=== PATIENT | male | born 1950 | race Caucasian/White ===

== ENCOUNTER 2016-12-11 07:20 | Emergency (ER) | payer MEDICARE, BC ==
[2016-12-11 07:38] VITALS: BP 149/77
--- NOTE | 2016-12-11 08:09 | EDM.PDOC ---
ED HPI GENERAL MEDICAL PROBLEM - General Chief Complaint: General Stated Complaint: unsteady gait, dizzy Time Seen by Provider: 12/11/16 07:50 Source of Information: Reports: Patient History Limitations: Reports: No limitations - History of Present Illness Onset: gradual Duration: Day(s):, Getting worse, Recurring Quality: Reports: Sharp Severity: moderate Worsens with: Reports: None, Other (Patient stated this has been going on for several days now. 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 He has not felt "right" since.) Associated Symptoms: Reports: other Abdomen Pain Score (Numeric/FACES): 2 (Not hurting now, but very painfull last night) - Related Data Allergies Allergy/AdvReac Type Severity Reaction Status Date / Time No Known Allergies Allergy Verified 12/11/16 07:39 Home Meds: Home Meds Albuterol [Proair HFA] 2 puff INH Q6HR PRN 11/02/13 [History] Aspirin [Halfprin] 81 mg PO DAILY 11/02/13 [History] Zolpidem [Ambien] 10 mg PO BEDTIME PRN #7 tab 11/03/13 [Rx] Ibuprofen 200 mg PO ASDIRECTED PRN 07/13/15 [History] amLODIPine Besylate [Amlodipine Besylate] 10 mg PO DAILY 06/02/16 [History] LORazepam [LORazepam] 1 mg PO BEDTIME PRN 07/27/16 [History] Pravastatin [Pravachol] 40 mg PO DAILY 12/11/16 [History] Sertraline [Zoloft] 50 mg PO DAILY 12/11/16 [History] Umeclidinium Brm/Vilanterol Tr [Anoro Ellipta 62.5-25 Mcg INH] 1 puff INH DAILY 12/11/16 [History] Past Medical History HEENT History: Reports: Cataract Cardiovascular History: Reports: High cholesterol, Hypertension, PVD, Other ( see below) Other Cardiovascular History: TIA's Respiratory History: Reports: COPD, Other (see below) Other Respiratory History: emphysema Genitourinary History: Reports: Other (see below) Other Genitourinary History: urinary frequency Musculoskeletal History: Reports: Fracture Neurological History: Reports: CVA Other Psychiatric History: says he has some depression Other Endocrine/Metabolic History: hyperlipidemia - Past Surgical History HEENT Surgical History: Reports: Cataract surgery Cardiovascular Surgical History: Reports: Vascular surgery GI Surgical History: Reports: Appendectomy Neurological Surgical History: Reports: None Musculoskeletal Surgical History: Reports: Carpal tunnel Social & Family History - Tobacco Use Smoking Status *Q: Former Smoker Years of Tobacco use: 40 Packs/Tins Daily: 0.5 Used Tobacco, but Quit: Yes Month Tobacco Last Used: June 2015 - Caffeine Use Caffeine Use: Reports: Soda - Alcohol Use Days Per Week of Alcohol Use: 7 Number of Drinks Per Day: 3 Total Drinks Per Week: 21 - Recreational Drug Use Recreational Drug Use: No ED ROS GENERAL - Review of Systems Review Of Systems: See Below Constitutional: Reports: fatigue, weight gain HEENT: Reports: No symptoms Respiratory: Reports: Shortness of Breath, Other (History of COPD) Cardiovascular: Reports: No symptoms Endocrine: Reports: fatigue GI/Abdominal: Reports: Abdominal pain, Constipation : Reports: no symptoms Musculoskeletal: Reports: no symptoms Skin: Reports: pallor Neurological: Reports: Dizziness, Difficulty Walking Psychiatric: Reports: Anxiety Hematologic/Lymphatic: Reports: no symptoms Immunologic: Reports: no symptoms ED EXAM, GENERAL - Physical Exam Exam: See Below Exam Limited By: No limitations General Appearance: alert, anxious Ears: normal external exam, normal canal Nose: normal inspection Throat/Mouth: Normal inspection Head: atraumatic, normocephalic Neck: normal inspection, non-tender Respiratory/Chest: no respiratory distress, lungs clear Cardiovascular: normal peripheral pulses, regular rate, rhythm, no edema GI/Abdominal: normal bowel sounds, soft, tender Extremities: normal inspection Neurological: alert, oriented, normal cognition, abnormal gait Psychiatric: anxious Skin Exam: Pallor EKG INTERPRETATION EKG Date: 12/11/16 EKG Interpretation Comments: normal sinus rythm Course - Vital Signs Last Recorded V/S: Last Vital Signs Temp 36.8 C 12/11/16 07:36 Pulse 82 12/11/16 07:36 Resp 16 12/11/16 07:36 BP 149/77 H 12/11/16 07:36 Pulse Ox 98 12/11/16 07:36 - Orders/Labs/Meds Orders: Active Orders 24 hr Category Date Time Status EKG Documentation Completion [RC] STAT Care 12/11/16 07:45 Active UA W/MICROSCOPIC [URIN] Stat Lab 12/11/16 08:00 Uncollected EKG 12 Lead [EK] Stat Ther 12/11/16 08:02 Stop Req Labs: Laboratory Tests 12/11/16 12/11/16 12/11/16 Range/Units 08:00 08:00 08:00 WBC 9.3 (5.0-10.0) 10^3/uL RBC 4.49 L (4.50-6.00) 10^6/uL Hgb 13.7 L (14.0-18.0) g/dL Hct 40.7 (40.0-54.0) % MCV 90.6 (82.0-94.0) fL MCH 30.5 (27.0-32.0) pg MCHC 33.7 (33.0-38.0) g/dL RDW Coeff of Roland 14.1 (11.0-15.0) % Plt Count 276 (150-400) 10^3/uL Neut % (Auto) 74.4 (35-85) % Lymph % (Auto) 13.1 (10-55) % [place] % (Auto) 10.1 (0-16) % Eos % (Auto) 2.2 (0-5) % Baso % (Auto) 0.2 (0-3) % Neut # 6.95 (1.80-7.00) 10^3/uL Lymph # 1.22 (1.00-4.80) 10^3/uL [place] # 0.94 H (0.00-0.80) 10^3/uL Eos # 0.21 (0.00-0.45) 10^3/uL Baso # 0.02 10^3/uL D-Dimer, Quantitative 0.40 (0.00-0.50) Sodium 137 (136-145) mEq/L Potassium 3.6 (3.5-5.0) mEq/L Chloride 101 (98-106) mEq/L Carbon Dioxide 29 (21-32) mmol/L BUN 13 (7-18) mg/dL Creatinine 1.2 (0.7-1.3) mg/dL Est Cr Clr Drug Dosing 57.00 mL/min Estimated GFR (MDRD) > 60 (>=60) mL/min Glucose 97 (75-99) mg/dL Calcium 8.3 L (8.4-10.1) mg/dL Total Bilirubin 0.8 (0.0-1.0) mg/dL AST 55 H (15-37) U/L ALT 55 (12-78) U/L Alkaline Phosphatase 85 (46-116) U/L Troponin I < 0.017 (0.00-0.06) ng/mL Total Protein 6.9 (6.4-8.2) g/dL Albumin 3.4 (3.4-5.0) g/dL Meds: Medications Discontinued Medications Generic Name Dose Route Start Last Admin Trade Name Freq PRN Reason Stop Dose Admin Al Hydroxide/Mg Hydroxide 30 0 ml 12/11/16 08:13 12/11/16 08:18 ml/ Lidocaine HCl 15 ml PO 12/11/16 08:14 45 ml ONETIME ONE Administration Departure - Departure Time of Disposition: 08:53 Disposition: Home, Self-Care 01 Condition: good Clinical Impression: Anxiety, Insomnia Instructions: Carotid Artery Disease, [id number] Forms: ED Department Discharge Additional Instructions: Follow up with your regular doctor next week. - My Orders Last 24 Hours: My Active Orders 12/11/16 07:45 EKG Documentation Completion [RC] STAT 12/11/16 08:00 UA W/MICROSCOPIC [URIN] Stat 12/11/16 08:02 EKG 12 Lead [EK] Stat - Assessment/Plan Last 24 Hours: My Active Orders 12/11/16 07:45 EKG Documentation Completion [RC] STAT 12/11/16 08:00 UA W/MICROSCOPIC [URIN] Stat 12/11/16 08:02 EKG 12 Lead [EK] Stat
[2016-12-11] MEDS ORDERED: Alum Hydrox/Mag Hydrox/Simeth 30 ML, Lidocaine 2% 15 ML PO ONE ×2 (08:13)
[2016-12-11 08:31] LABS: CHLORIDE,CL 101 mEq/L (98-106); SODIUM,NA 137 mEq/L (136-145)
== END 2016-12-11 09:03 | disposition home or self-care (01) ==
LOC: CC.ED 07:20
DX: F41.9 Anxiety disorder, unspecified (principal); G47.00 Insomnia, unspecified; E78.00 Pure hypercholesterolemia, unspecified; I10 Essential (primary) hypertension; Z86.73 Personal history of transient ischemic attack (TIA), and cerebral infarction without residual deficits; E78.5 Hyperlipidemia, unspecified; Z98.49 Cataract extraction status, unspecified eye; Z90.49 Acquired absence of other specified parts of digestive tract; Z87.891 Personal history of nicotine dependence; Z79.82 Long term (current) use of aspirin; Z79.899 Other long term (current) drug therapy
CPT/HCPCS: 36415; 80053; 84484; 85025; 85379; 93005; 99284; A9270; 93010

== ENCOUNTER 2017-02-20 23:58 | Emergency (ER) | payer MEDICARE, BC ==
--- NOTE | 2017-02-21 00:55 | EDM.PDOC ---
ED HPI GENERAL MEDICAL PROBLEM - General Chief Complaint: General Stated Complaint: general Time Seen by Provider: 02/21/17 00:19 Source of Information: Reports: Patient - History of Present Illness INITIAL COMMENTS - FREE TEXT/NARRATIVE: Presents to the ER stating he thinks he may have overdosed on his Ambein tonight. He hasnt slept much in the last few days, and he is a little confused. Onset: Today Duration: Hour(s): Severity: Moderate Associated Symptoms: Reports: Confusion - Related Data Allergies Allergy/AdvReac Type Severity Reaction Status Date / Time No Known Allergies Allergy Verified 02/20/17 23:59 Home Meds: Home Meds Albuterol [Proair HFA] 2 puff INH Q6HR PRN 11/02/13 [History] Ibuprofen 200 mg PO ASDIRECTED PRN 07/13/15 [History] amLODIPine Besylate [Amlodipine Besylate] 10 mg PO DAILY 06/02/16 [History] Calcium Carbonate/Vitamin D3 [Caltrate 600 Plus D3 Tablet] 1 tab PO DAILY [History] Cholecalciferol (Vitamin D3) [Vitamin D3] 2,000 unit PO DAILY 12/11/16 [History] Pravastatin [Pravachol] 40 mg PO DAILY 12/11/16 [History] Sertraline [Zoloft] 50 mg PO DAILY 12/11/16 [History] Umeclidinium Brm/Vilanterol Tr [Anoro Ellipta 62.5-25 Mcg INH] 1 puff INH DAILY 12/11/16 [History] Clopidogrel [Plavix] 75 mg PO DAILY 02/20/17 [History] LORazepam [Ativan] 1 mg PO Q6H PRN 02/20/17 [History] Zolpidem [Ambien] 10 mg PO DAILY 02/20/17 [History] Past Medical History HEENT History: Reports: Cataract Cardiovascular History: Reports: High Cholesterol, Hypertension, PVD, Other ( See Below) Other Cardiovascular History: TIA's Respiratory History: Reports: COPD Other Respiratory History: emphysema Genitourinary History: Reports: Other (See Below) Other Genitourinary History: urinary frequency Musculoskeletal History: Reports: Fracture Neurological History: Reports: CVA Psychiatric History: Reports: Depression, Other (See Below) Other Psychiatric History: says he has some depression Endocrine/Metabolic History: Reports: Vitamin D Deficiency Other Endocrine/Metabolic History: hyperlipidemia - Past Surgical History HEENT Surgical History: Reports: Cataract Surgery Cardiovascular Surgical History: Reports: Vascular Surgery GI Surgical History: Reports: Appendectomy Neurological Surgical History: Reports: None Musculoskeletal Surgical History: Reports: Carpal Tunnel Social & Family History - Tobacco Use Smoking Status *Q: Former Smoker Years of Tobacco use: 50 Packs/Tins Daily: 0.5 Used Tobacco, but Quit: Yes Month Tobacco Last Used: 2012 - Caffeine Use Caffeine Use: Reports: Soda - Alcohol Use Days Per Week of Alcohol Use: 7 Number of Drinks Per Day: 3 Total Drinks Per Week: 21 - Recreational Drug Use Recreational Drug Use: No ED ROS GENERAL - Review of Systems Review Of Systems: See Below Constitutional: Reports: No Symptoms HEENT: Reports: No Symptoms Respiratory: Reports: No Symptoms Cardiovascular: Reports: No Symptoms Endocrine: Reports: No Symptoms Musculoskeletal: Reports: No Symptoms Skin: Reports: No Symptoms Neurological: Reports: No Symptoms Psychiatric: Reports: Anxiety, Confusion ED EXAM, GENERAL - Physical Exam Exam: See Below Exam Limited By: No Limitations General Appearance: Alert, WD/WN, Anxious Ears: Normal External Exam, Normal Canal Nose: Normal Inspection Throat/Mouth: Normal Inspection Head: Atraumatic, Normocephalic Neck: Normal Inspection Respiratory/Chest: No Respiratory Distress, Lungs Clear, Normal Breath Sounds Cardiovascular: Normal Peripheral Pulses GI/Abdominal: Normal Bowel Sounds Back Exam: Normal Inspection Neurological: Alert, Disoriented Skin Exam: Warm, Dry Lymphatic: No Adenopathy Course - Vital Signs Last Recorded V/S: Last Vital Signs Temp 98.4 F 02/21/17 00:05 Pulse 93 02/21/17 00:05 Resp 20 02/21/17 00:05 BP 147/76 H 02/21/17 00:20 Pulse Ox 99 02/21/17 00:10 Departure - Departure Time of Disposition: 04:23 (held patient in extended ER for a few hours to mke sure he didnt have any further coplications. pateint states he feels better and is ready to go home) Disposition: Home, Self-Care 01 Condition: good Clinical Impression: Insomnia, Confusion - Discharge Information Forms: ED Department Discharge Additional Instructions: follow up with your regular doctor this week.
[2017-02-21 01:04] VITALS: BP 147/76
== END 2017-02-21 04:45 | disposition home or self-care (01) ==
LOC: CC.ED 23:58
DX: G47.00 Insomnia, unspecified (principal); R41.0 Disorientation, unspecified; E78.00 Pure hypercholesterolemia, unspecified; I10 Essential (primary) hypertension; E78.5 Hyperlipidemia, unspecified; F32.9 Major depressive disorder, single episode, unspecified; J44.9 Chronic obstructive pulmonary disease, unspecified; Z79.899 Other long term (current) drug therapy; Z87.891 Personal history of nicotine dependence; Z86.73 Personal history of transient ischemic attack (TIA), and cerebral infarction without residual deficits; Z98.49 Cataract extraction status, unspecified eye; Z90.49 Acquired absence of other specified parts of digestive tract
CPT/HCPCS: 99284

== ENCOUNTER 2017-07-28 10:20 | Inpatient (IN) | payer MEDICARE, BC ==
[2017-07-28] MEDS ORDERED: Aspirin 81 MG Tab.Chew PO ONE (10:36)
[2017-07-28] MEDS ORDERED: fentaNYL 100 MCG/2 ML SDV IVPUSH ONE ×3 (10:45→11:57)
[2017-07-28 11:04] LABS: CHLORIDE,CL 97 mEq/L (98-106); SODIUM,NA 134 mEq/L (136-145)
--- NOTE | 2017-07-28 11:26 | EDM.PDOC ---
ED HPI GENERAL MEDICAL PROBLEM - General Chief Complaint: Abdominal Pain Stated Complaint: SOB Time Seen by Provider: 07/28/17 11:00 Source of Information: Reports: Patient History Limitations: Reports: No Limitations - History of Present Illness INITIAL COMMENTS - FREE TEXT/NARRATIVE: Patient is a 66 year old male who presents to the ER with complaints of severe mid epigastric pain. He reports the pain started yesterday evening after eating "two large helpings of hotdish and some ham." Associated symptoms include shortness of breath and back pain. He states the pain radiates to his bilateral mid back. He does report a history of COPD, but states he feels more short of breath than normal. Denies nausea, vomiting, diarrhea, chest pain, fever, chills. No other associated symptoms. Does reports he took Peptol Bismol at home last evening and this morning, with no relief. Has not tried any other alleviating methods. Pain is worsened with palpation, deep breathing, and movement. He reports that he was unable to sleep last night due to the pain. He reports he could not get comfortable. Does report a surgical history of appendectomy. Does report he still has his gallbladder. Denies history of kidney stones or GERD. Reports history of PVD, COPD, and stroke. Reports he drinks alcohol 3-4 days a week. Reports he last drank 6-7 drinks last evening. Onset Date: 07/27/17 Onset Time: 18:00 Duration: Constant, Getting Worse Location: Reports: Abdomen (mid epigastric ), Back (radiation to lower back) Quality: Reports: Ache, Burning, Sharp Severity: Severe Improves with: Reports: None Worsens with: Reports: Breathing, Movement Associated Symptoms: Reports: Shortness of Breath. Denies: Confusion, Chest Pain, Cough, cough w sputum, Diaphoresis, Fever/Chills, Headaches, Loss of Appetite, Malaise, Nausea/Vomiting, Rash, Seizure, Syncope, Weakness Treatments MERCURY PURIFIER: Reports: Other (see below) (Pepto Bismol) Epigastric Pain Score (Numeric/FACES): 6 - Related Data Allergies Allergy/AdvReac Type Severity Reaction Status Date / Time No Known Allergies Allergy Verified 07/28/17 10:46 Home Meds: Home Meds Albuterol [Proair HFA] 2 puff INH Q6HR PRN 11/02/13 [History] amLODIPine Besylate [Amlodipine Besylate] 10 mg PO DAILY 06/02/16 [History] Calcium Carbonate/Vitamin D3 [Caltrate 600 Plus D3 Tablet] 1 tab PO DAILY [History] Cholecalciferol (Vitamin D3) [Vitamin D3] 2,000 unit PO DAILY 12/11/16 [History] Pravastatin [Pravachol] 40 mg PO DAILY 12/11/16 [History] Umeclidinium Brm/Vilanterol Tr [Anoro Ellipta 62.5-25 Mcg INH] 1 puff INH DAILY 12/11/16 [History] Clopidogrel [Plavix] 75 mg PO DAILY 02/20/17 [History] LORazepam [Ativan] 1 mg PO Q6H PRN 02/20/17 [History] Amitriptyline [Elavil] 25 mg PO BEDTIME 07/28/17 [History] Past Medical History HEENT History: Reports: Cataract Cardiovascular History: Reports: High Cholesterol, Hypertension, PVD, Other ( See Below) Other Cardiovascular History: TIA's Respiratory History: Reports: COPD Other Respiratory History: emphysema Genitourinary History: Reports: Other (See Below) Other Genitourinary History: urinary frequency Musculoskeletal History: Reports: Fracture Neurological History: Reports: CVA Psychiatric History: Reports: Depression, Other (See Below) Other Psychiatric History: says he has some depression Endocrine/Metabolic History: Reports: Vitamin D Deficiency Other Endocrine/Metabolic History: hyperlipidemia - Past Surgical History HEENT Surgical History: Reports: Cataract Surgery Cardiovascular Surgical History: Reports: Vascular Surgery GI Surgical History: Reports: Appendectomy Neurological Surgical History: Reports: None Musculoskeletal Surgical History: Reports: Carpal Tunnel Social & Family History - Tobacco Use Smoking Status *Q: Former Smoker Years of Tobacco use: 50 Packs/Tins Daily: 0.5 Used Tobacco, but Quit: Yes Month Tobacco Last Used: 3 YEARS AGO - Caffeine Use Caffeine Use: Reports: Soda - Alcohol Use Days Per Week of Alcohol Use: 3 Number of Drinks Per Day: 4 Total Drinks Per Week: 12 - Recreational Drug Use Recreational Drug Use: No ED ROS GENERAL - Review of Systems Review Of Systems: ROS reveals no pertinent complaints other than HPI. Constitutional: Reports: No Symptoms. Denies: Fever, Chills, Weakness, Fatigue HEENT: Reports: No Symptoms Respiratory: Reports: Shortness of Breath (history of COPD). Denies: Cough, Sputum, Hemoptysis Cardiovascular: Reports: Dyspnea on Exertion. Denies: Chest Pain, Blood Pressure Problem, Edema, Lightheadedness, Palpitations, Syncope Endocrine: Reports: No Symptoms GI/Abdominal: Reports: Abdominal Pain (mid epigastric). Denies: Black Stool, Bloody Stool, Constipation, Diarrhea, Distension, Hematemesis, Hematochezia, Melena, Nausea, Vomiting : Reports: No Symptoms. Denies: Dysuria, Frequency Musculoskeletal: Reports: No Symptoms Skin: Reports: No Symptoms Neurological: Reports: No Symptoms Psychiatric: Reports: No Symptoms Hematologic/Lymphatic: Reports: No Symptoms Immunologic: Reports: No Symptoms ED EXAM, GENERAL - Physical Exam Exam: See Below Exam Limited By: No Limitations General Appearance: Alert, WD/WN, Anxious, Moderate Distress Eye Exam: Bilateral Eye: EOMI, Normal Fundi, Normal Inspection Ears: Normal External Exam, Normal Canal, Hearing Grossly Normal, Normal TMs Ear Exam: Bilateral Ear: Auricle Normal, Canal Normal, TM normal Nose: Normal Inspection, Normal Mucosa, No Blood Throat/Mouth: Normal Inspection, Normal Lips, Normal Teeth, Normal Gums, Normal Oropharynx, Normal Voice, No Airway Compromise Head: Atraumatic, Normocephalic Neck: Normal Inspection, Supple, Non-Tender, Full Range of Motion Respiratory/Chest: No Respiratory Distress, No Accessory Muscle Use, Chest Non- Tender, Decreased Breath Sounds (throughout). No: Crackles, Rales, Rhonchi, Wheezing Cardiovascular: Normal Peripheral Pulses, Regular Rate, Rhythm, No Edema, No Gallop, No JVD, No Murmur, No Rub Peripheral Pulses: 2+: Dorsalis Pedis (L), Dorsalis Pedis (R) GI/Abdominal: Normal Bowel Sounds, Soft, No Organomegaly, No Distention, No Mass , Pelvis Stable, Guarding, Tender (mid epigastric region). No: Rigid, Rebound, Hepatomegaly, Splenomegaly (Male) Exam: Deferred Rectal (Males) Exam: Deferred Back Exam: Normal Inspection, Full Range of Motion, NT Extremities: Normal Inspection, Normal Range of Motion, Non-Tender, Normal Capillary Refill, No Pedal Edema Neurological: Alert, Oriented, CN II-XII Intact, Normal Cognition, Normal Gait, Normal Reflexes, No Motor/Sensory Deficits Psychiatric: Normal Affect, Normal Mood Skin Exam: Warm, Dry, Intact, Normal Color, No Rash Lymphatic: No Adenopathy Course - Vital Signs Last Recorded V/S: Last Vital Signs Temp 101.3 F H 07/28/17 20:00 Pulse 79 07/28/17 20:00 Resp 20 07/28/17 20:00 BP 122/61 07/28/17 20:00 Pulse Ox 96 07/28/17 20:00 - Orders/Labs/Meds Orders: Active Orders 24 hr Category Date Time Status Abdomen Ltd [US] Stat Exams 07/28/17 11:26 Taken Chest 2V [CR] Stat Exams 07/28/17 10:31 Taken Medication Orders Albuterol (Ventolin Hfa) 0 gm INH Q6H PRN PRN Reason: Dyspnea Amitriptyline HCl (Elavil) 25 mg PO BEDTIME [facility] Last Admin: 07/28/17 19:53 Dose: 25 mg Amlodipine Besylate (Norvasc) 10 mg PO DAILY [facility] Chlordiazepoxide HCl (Librium) 10 mg PO BID [facility] Last Admin: 07/28/17 19:54 Dose: 10 mg Admin: 07/28/17 14:46 Dose: 10 mg Clopidogrel Bisulfate (Plavix) 75 mg PO DAILY [facility] Docusate Sodium (Colace) 100 mg PO BID PRN PRN Reason: Constipation Hydromorphone HCl (Dilaudid) 0.5 mg IVPUSH Q2H PRN PRN Reason: Pain (severe 7-10) Last Admin: 07/28/17 19:48 Dose: 0.5 mg Admin: 07/28/17 17:03 Dose: 0.5 mg Admin: 07/28/17 14:43 Dose: 0.5 mg Sodium Chloride (Normal Saline) 1,000 mls @ 125 mls/hr IV ASDIRECTED [facility] Last Admin: 07/28/17 16:06 Dose: 125 mls/hr Levofloxacin/Dextrose 500 mg/ (Premix) 100 mls @ 100 mls/hr IV Q24H [facility] Last Admin: 07/28/17 21:17 Dose: 100 mls/hr Metronidazole 500 mg/ Premix 100 mls @ 100 mls/hr IV Q6H [facility] Last Admin: 07/28/17 20:15 Dose: 100 mls/hr Ibuprofen (Motrin) 600 mg PO Q6H PRN PRN Reason: Fever Last Admin: 07/28/17 16:26 Dose: 600 mg Lorazepam (Ativan) 0.5 - 1 mg IVPUSH Q2H PRN PRN Reason: Withdrawal Symptoms Last Admin: 07/28/17 20:14 Dose: 1 mg Admin: 07/28/17 15:07 Dose: 1 mg Magnesium Hydroxide (Milk Of Magnesia) 30 ml PO Q12H PRN PRN Reason: Constipation Ptom [Anoro Ellipta (62.5-25 Mcg) 1 puff INH DAILY [facility] Ondansetron HCl (Zofran) 4 mg IV Q6H PRN PRN Reason: Nausea/Vomiting Pantoprazole Sodium (Protonix Iv) 40 mg IVPUSH BID [facility] Last Admin: 07/28/17 19:54 Dose: 40 mg Admin: 07/28/17 14:43 Dose: 40 mg Simvastatin (Zocor) 20 mg PO BEDTIME [facility] Temazepam (Restoril) 15 mg PO BEDTIME PRN PRN Reason: Insomnia Last Admin: 07/28/17 20:19 Dose: 15 mg Thiamine HCl (Vitamin B-1) 100 mg PO DAILY [facility] Labs: Laboratory Tests 07/28/17 07/28/17 07/28/17 Range/Units 06:55 10:36 10:36 WBC 12.2 H (5.0-10.0) 10^3/uL RBC 4.85 (4.50-6.00) 10^6/uL Hgb 13.1 L 14.7 (14.0-18.0) g/dL Hct 43.2 (40.0-54.0) % MCV 89.1 (82.0-94.0) fL MCH 30.3 (27.0-32.0) pg MCHC 34.0 (33.0-38.0) g/dL RDW Coeff of Roland 13.3 (11.0-15.0) % Plt Count 289 (150-400) 10^3/uL Neut % (Auto) 82.5 (35-85) % Lymph % (Auto) 9.4 L (10-55) % Preble % (Auto) 7.2 (0-16) % Eos % (Auto) 0.8 (0-5) % Baso % (Auto) 0.1 (0-3) % Neut # (Auto) 10.04 H (1.80-7.00) 10^3/uL Lymph # (Auto) 1.15 (1.00-4.80) 10^3/uL Preble # (Auto) 0.88 H (0.00-0.80) 10^3/uL Eos # (Auto) 0.10 (0.00-0.45) 10^3/uL Baso # (Auto) 0.01 10^3/uL PT 10.3 (9.7-12.3) SEC INR 0.96 (0.92-1.18) D-Dimer, Quantitative 0.25 (0.00-0.50) Sodium (136-145) mEq/L Potassium (3.5-5.0) mEq/L Chloride (98-106) mEq/L Carbon Dioxide (21-32) mmol/L BUN (7-18) mg/dL Creatinine (0.7-1.3) mg/dL Est Cr Clr Drug Dosing mL/min Estimated GFR (MDRD) (>=60) mL/min Glucose (75-99) mg/dL Lactic Acid (0.4-2.0) mmol/L Calcium (8.4-10.1) mg/dL Total Bilirubin (0.0-1.0) mg/dL AST (15-37) U/L ALT (12-78) U/L Alkaline Phosphatase (46-116) U/L Lactate Dehydrogenase (100-190) U/L Creatine Kinase (35-232) U/L Troponin I (0.00-0.06) ng/mL NT-Pro-B Natriuret Pep (0-1000) pg/mL Total Protein (6.4-8.2) g/dL Albumin (3.4-5.0) g/dL Amylase (25-115) U/L 07/28/17 07/28/17 07/28/17 Range/Units 10:36 10:45 11:36 WBC (5.0-10.0) 10^3/uL RBC (4.50-6.00) 10^6/uL Hgb (14.0-18.0) g/dL Hct (40.0-54.0) % MCV (82.0-94.0) fL MCH (27.0-32.0) pg MCHC (33.0-38.0) g/dL RDW Coeff of Roland (11.0-15.0) % Plt Count (150-400) 10^3/uL Neut % (Auto) (35-85) % Lymph % (Auto) (10-55) % Preble % (Auto) (0-16) % Eos % (Auto) (0-5) % Baso % (Auto) (0-3) % Neut # (Auto) (1.80-7.00) 10^3/uL Lymph # (Auto) (1.00-4.80) 10^3/uL Preble # (Auto) (0.00-0.80) 10^3/uL Eos # (Auto) (0.00-0.45) 10^3/uL Baso # (Auto) 10^3/uL PT (9.7-12.3) SEC INR (0.92-1.18) D-Dimer, Quantitative (0.00-0.50) Sodium 134 L (136-145) mEq/L Potassium 4.2 (3.5-5.0) mEq/L Chloride 97 L (98-106) mEq/L Carbon Dioxide 30 (21-32) mmol/L BUN 10 (7-18) mg/dL Creatinine 1.0 (0.7-1.3) mg/dL Est Cr Clr Drug Dosing 68.40 mL/min Estimated GFR (MDRD) > 60 (>=60) mL/min Glucose 130 H (75-99) mg/dL Lactic Acid 1.3 (0.4-2.0) mmol/L Calcium 8.7 (8.4-10.1) mg/dL Total Bilirubin 0.9 (0.0-1.0) mg/dL AST 303 H* (15-37) U/L ALT 163 H (12-78) U/L Alkaline Phosphatase 136 H (46-116) U/L Lactate Dehydrogenase 278 H (100-190) U/L Creatine Kinase 92 (35-232) U/L Troponin I < 0.017 (0.00-0.06) ng/mL NT-Pro-B Natriuret Pep 255 (0-1000) pg/mL Total Protein 7.7 (6.4-8.2) g/dL Albumin 4.0 (3.4-5.0) g/dL Amylase 48 (25-115) U/L Meds: Medications Generic Name Dose Route Start Last Admin Trade Name Freq PRN Reason Stop Dose Admin Albuterol 0 gm 07/28/17 13:52 Ventolin Hfa INH Q6H PRN Dyspnea Amitriptyline HCl 25 mg 07/28/17 20:00 07/28/17 19:53 Elavil PO 25 mg BEDTIME [facility] Administration Amlodipine Besylate 10 mg 07/29/17 08:00 Norvasc PO DAILY [facility] Chlordiazepoxide HCl 10 mg 07/28/17 13:52 07/28/17 19:54 Librium PO 10 mg BID [facility] Administration Clopidogrel Bisulfate 75 mg 07/29/17 08:00 Plavix PO DAILY [facility] Docusate Sodium 100 mg 07/28/17 13:52 Colace PO BID PRN Constipation Hydromorphone HCl 0.5 mg 07/28/17 13:52 07/28/17 19:48 Dilaudid IVPUSH 0.5 mg Q2H PRN Administration Pain (severe 7-10) Sodium Chloride 1,000 mls @ 125 mls/hr 07/28/17 13:52 07/28/17 16:06 Normal Saline IV 125 mls/hr ASDIRECTED [facility] Administration Levofloxacin/Dextrose 500 mg/ 100 mls @ 100 mls/hr 07/28/17 22:00 07/28/17 21 :17 Premix IV 100 mls/hr Q24H [facility] Administration Metronidazole 500 mg/ Premix 100 mls @ 100 mls/hr 07/28/17 20:00 07/28/17 20: 15 IV 100 mls/hr Q6H [facility] Administration Ibuprofen 600 mg 07/28/17 16:04 07/28/17 16:26 Motrin PO 600 mg Q6H PRN Administration Fever Lorazepam 0.5 - 1 mg 07/28/17 13:52 07/28/17 20:14 Ativan IVPUSH 1 mg Q2H PRN Administration Withdrawal Symptoms Magnesium Hydroxide 30 ml 07/28/17 13:52 Milk Of Magnesia PO Q12H PRN Constipation Ptom [Anoro Ellipta 1 puff 07/29/17 08:00 62.5-25 Mcg INH DAILY [facility] Ondansetron HCl 4 mg 07/28/17 13:52 Zofran IV Q6H PRN Nausea/Vomiting Pantoprazole Sodium 40 mg 07/28/17 13:52 07/28/17 19:54 Protonix Iv IVPUSH 40 mg BID [facility] Administration Simvastatin 20 mg 07/29/17 20:00 Zocor PO BEDTIME [facility] Temazepam 15 mg 07/28/17 18:49 07/28/17 20:19 Restoril PO 15 mg BEDTIME PRN Administration Insomnia Thiamine HCl 100 mg 07/29/17 08:00 Vitamin B-1 PO DAILY [facility] Discontinued Medications Generic Name Dose Route Start Last Admin Trade Name Freq PRN Reason Stop Dose Admin Aspirin 324 mg 07/28/17 10:36 07/28/17 10:38 Aspirin PO 07/28/17 10:37 324 mg ONETIME ONE Administration Ceftriaxone Sodium 1 gm 07/28/17 17:45 07/28/17 18:34 Rocephin IVPUSH Not Given Q24H [facility] Ceftriaxone Sodium 1 gm 07/28/17 20:00 07/28/17 19:39 Rocephin IVPUSH Not Given Q24H [facility] Chlordiazepoxide HCl Confirm 07/28/17 14:49 07/28/17 14:51 Librium Administered 07/28/17 14:50 Not Given Dose 10 mg .ROUTE .STK-MED ONE Fentanyl 25 mcg 07/28/17 10:45 07/28/17 10:56 Sublimaze IVPUSH 07/28/17 10:46 25 mcg ONETIME ONE Administration Fentanyl 25 mcg 07/28/17 11:15 07/28/17 11:21 Sublimaze IVPUSH 07/28/17 11:16 25 mcg ONETIME ONE Administration Fentanyl 25 mcg 07/28/17 11:57 07/28/17 12:02 Sublimaze IVPUSH 07/28/17 11:58 25 mcg ONETIME ONE Administration Hydromorphone HCl Confirm 07/28/17 14:48 07/28/17 14:50 Dilaudid Administered 07/28/17 14:49 Not Given Dose 1 mg .ROUTE .STK-MED ONE Sodium Chloride 1,000 mls @ 500 mls/hr 07/28/17 12:15 07/28/17 12:35 Normal Saline IV 500 mls/hr STAT [facility] Administration Multivitamins/Minerals 10 ml/ 1,015.2 mls @ 175 mls/hr 07/28/17 13:52 14:44 Folic Acid 1 mg/ Thiamine HCl IV 07/28/17 19:40 175 mls/hr 100 mg/ Magnesium Sulfate 2 gm ONETIME ONE Administration / Sodium Chloride Ibuprofen Confirm 07/28/17 16:18 07/28/17 16:26 Motrin Administered 07/28/17 16:19 Not Given Dose 600 mg .ROUTE .STK-MED ONE Iopamidol 100 ml 07/28/17 12:40 07/28/17 12:35 Isovue-300 (61%) IVPUSH 07/28/17 12:41 100 ml ONETIME ONE Administration Iopamidol 100 ml 07/28/17 14:28 Isovue-300 (61%) IVPUSH 07/28/17 14:29 ONETIME ONE Lorazepam Confirm 07/28/17 15:18 07/28/17 16:26 Ativan Administered 07/28/17 15:19 Not Given Dose 2 mg .ROUTE .STK-MED ONE Pantoprazole Sodium Confirm 07/28/17 14:48 07/28/17 14:51 Protonix Iv Administered 07/28/17 14:49 Not Given Dose 40 mg .ROUTE .STK-MED ONE - Radiology Interpretation Free Text/Narrative:: 1242: Call from Radiologist reporting that he does not see anything acute on US that would cause this type of pain. Reports there are multiple small stones in gallbladder as well as a large polyp. Does not see any gallbladder wall thickening or common bile duct dilation to indicate acute cholecystitis. - Re-Assessments/Exams Free Text/Narrative Re-Assessment/Exam: 07/28/17 11:20 Discussed lab results with patient and family. Will proceed with abdominal US given elevated liver enzymes. 07/28/17 12:45 Discussed US findings with patient and family. Radiologist called report of multiple small stones in gallblader as well as a large polyp. US does not show any acute cholecystitis or dilated CBD. 07/28/17 13:[address] [facility] to discuss case with general surgery. One call nurse reported he is in OR and would return call. 07/28/17 13:[address] Desir. Will admit to acute without telemetry. 07/28/17 16:[address] abd/pelvis results. Report multiple gallstones and 4-5 stones in the distal common duct, dilation of the CBD and interhepatic duct dilation. Findings suggest development of acute cholecystitis. Discussed with Chloe WILEY. Will start IV Rocephin and follow up tomorrow with surgical consultation and possible transfer at that time. 07/28/17 19:[address] Desir. Will switch antibiotic regimen. D/C rocephin. Start Levaquin and Flagyl. Departure - Departure Time of Disposition: 13:45 Disposition: Admitted As Inpatient 64 Condition: Fair Clinical Impression: Alcoholic cirrhosis of liver without ascites, Current drinker of alcohol, Cholecystitis, acute with cholelithiasis - Problem List & Annotations (1) Cholecystitis, acute with cholelithiasis SNOMED Code(s): 68659897 Code(s): K80.00 - CALCULUS OF GALLBLADDER W ACUTE CHOLECYST W/O OBSTRUCTION Status: Acute Current Visit: Yes (2) Alcoholic cirrhosis of liver without ascites SNOMED Code(s): 251720840 Code(s): K70.30 - ALCOHOLIC CIRRHOSIS OF LIVER WITHOUT ASCITES Status: Acute Priority: High Current Visit: Yes (3) Current drinker of alcohol SNOMED Code(s): 539016 Code(s): Z78.9 - OTHER SPECIFIED HEALTH STATUS Status: Acute Current Visit: Yes (4) COPD (chronic obstructive pulmonary disease) SNOMED Code(s): 51227610 Code(s): J44.9 - CHRONIC OBSTRUCTIVE PULMONARY DISEASE, UNSPECIFIED Status : Chronic Current Visit: Yes Qualifiers: COPD type: unspecified COPD Qualified Code(s): J44.9 - Chronic obstructive pulmonary disease, unspecified (5) HTN, Benign hypertension SNOMED Code(s): 74176973 Code(s): I10 - ESSENTIAL (PRIMARY) HYPERTENSION Status: Chronic Current Visit: No (6) Hyperlipidemia SNOMED Code(s): 97971645 Code(s): E78.5 - HYPERLIPIDEMIA, UNSPECIFIED Status: Chronic Current Visit: No - Problem List Review Problem List Initiated/Reviewed/Updated: Yes - My Orders Last 24 Hours: My Active Orders 07/28/17 10:31 Chest 2V [CR] Stat 07/28/17 11:26 Abdomen Ltd [US] Stat - Assessment/Plan Admission H&P: Please use this note as an admission H&P Last 24 Hours: My Active Orders 07/28/17 10:31 Chest 2V [CR] Stat 07/28/17 11:26 Abdomen Ltd [US] Stat Assessment:: Alcohol induced cirrhosis of liver Acute cholecystitis with cholelithiasis Current ETOH user COPD Hypertension Hyperlipidemia Plan: Admit to hospital- acute without telemetry. Will admit to Dr. Desir. Case discussed with Dr. Desir. Will start IVF. Keep patient NPO. Will start IV protonix BID. Daily labs- CBC, CMP, amylase. Will also send out lipase and also check hgb at 1900 tonight. Order for IV ativan as needed for alcohol withdrawal symptoms including tachycardia, sweatiness, tremors, anxiety, or nervousness. Will give banana bag IV x1 and start librium BID. CT abdomen/pelvis showed acute cholecystitis with cholelithiasis- Will change antibiotic regiment to Levaquin and Flagyl. Follow up with [facility] tomorrow per patients request.
[2017-07-28] MEDS ORDERED: Sodium Chloride 0.9% 1,000 ML IV SCH (12:15)
[2017-07-28] MEDS ORDERED: Iopamidol 612 MG/ML 100 ML Bottle IVPUSH ONE ×2 (12:40→14:28)
[2017-07-28] MEDS ORDERED: Docusate Sodium 100 MG Cap PO PRN (13:52)
[2017-07-28] MEDS ORDERED: Magnesium Hydroxide 400 MG/5 ML Susp 30 ML Cup PO PRN (13:52)
[2017-07-28] MEDS ORDERED: Albuterol 8 GM Inhaler INH PRN (13:52)
[2017-07-28] MEDS ORDERED: Ondansetron 4 MG/2 ML SDV IV PRN (13:52)
[2017-07-28] MEDS ORDERED: MVI, Adult with Vitamin K 10 ML, Folic Acid 1 MG, Thiamine 100 MG, Magnesium Sulfate 2 ... IV ONE ×5 (13:52)
[2017-07-28] MEDS: Pantoprazole 40 MG Vial IVPUSH SCH ×2 (14:43→19:54)
[2017-07-28] MEDS: HYDROmorphone 1 MG/ML Syringe IVPUSH PRN ×3 (14:43→19:48)
[2017-07-28] MEDS: chlordiazePOXIDE 10 MG Cap PO SCH ×2 (14:46→19:54)
[2017-07-28] MEDS ORDERED: HYDROmorphone 1 MG/ML Syringe ONE (14:48)
[2017-07-28] MEDS ORDERED: Pantoprazole 40 MG Vial ONE (14:48)
[2017-07-28] MEDS ORDERED: chlordiazePOXIDE 10 MG Cap ONE (14:49)
[2017-07-28] MEDS: LORazepam 2 MG/ML Syringe IVPUSH PRN ×2 (15:07→20:14)
[2017-07-28] MEDS ORDERED: LORazepam 2 MG/ML Syringe ONE (15:18)
[2017-07-28] MEDS: Sodium Chloride 0.9% 1,000 ML IV SCH (16:06)
[2017-07-28] MEDS ORDERED: Ibuprofen 200 MG Tab ONE (16:18)
[2017-07-28] MEDS: Ibuprofen 200 MG Tab PO PRN (16:26)
[2017-07-28] MEDS ORDERED: cefTRIAXone 1 GM Vial IVPUSH SCH ×2 (17:45→20:00)
[2017-07-28] MEDS ORDERED: Temazepam 15 MG Cap PO PRN (18:49)
[2017-07-28] MEDS ORDERED: Amitriptyline 25 MG Tab PO SCH (20:00)
[2017-07-28] MEDS: metroNIDAZOLE/Normal Saline 500 MG in Premix Bag 1 BAG IV SCH (20:15)
[2017-07-28] MEDS ORDERED: Levofloxacin/Dextrose 5%-Water 500 MG in Premix Bag 1 BAG IV SCH (22:00)
[2017-07-29] MEDS: metroNIDAZOLE/Normal Saline 500 MG in Premix Bag 1 BAG IV SCH (01:40)
[2017-07-29] MEDS: Ibuprofen 200 MG Tab PO PRN (01:57)
[2017-07-29] MEDS: HYDROmorphone 1 MG/ML Syringe IVPUSH PRN ×3 (02:02→10:06)
[2017-07-29] MEDS: LORazepam 2 MG/ML Syringe IVPUSH PRN (02:05)
[2017-07-29 07:29] LABS: CHLORIDE,CL 100 mEq/L (98-106); SODIUM,NA 133 mEq/L (136-145)
[2017-07-29 07:34] VITALS: BP 112/56
[2017-07-29] MEDS ORDERED: Thiamine 100 MG Tab PO SCH (08:00)
[2017-07-29] MEDS ORDERED: amLODIPine 10 MG Tab PO SCH (08:00)
[2017-07-29] MEDS ORDERED: Clopidogrel 75 MG Tab PO SCH (08:00)
[2017-07-29] MEDS: Sodium Chloride 0.9% 1,000 ML IV SCH ×2 (08:10)
[2017-07-29] MEDS: Pantoprazole 40 MG Vial IVPUSH SCH (08:12)
[2017-07-29] MEDS: chlordiazePOXIDE 10 MG Cap PO SCH (08:16)
[2017-07-29] MEDS ORDERED: metroNIDAZOLE/Normal Saline 500 MG in Premix Bag 1 BAG IV SCH (12:00)
[2017-07-29] MEDS ORDERED: Simvastatin 20 MG Tab PO SCH (20:00)
[2017-07-29] MEDS ORDERED: Levofloxacin/Dextrose 5%-Water 500 MG in Premix Bag 1 BAG IV SCH (20:00)
--- NOTE | 2017-07-31 20:25 | PCM.DCSUM1 ---
Discharge Summary - Hospital Course Free Text/Narrative:: Patient presented to ER for acute abdomen. Had complaints of midepigastric abdominal pain that radiated to his back. Patient stated pain started after ingesting 2 large helpings of hot dish. Had tried Pepto Bismal without relief.Lab work did show mild elevation of WBC. ALT and AST elevated. Bilirubin normal. Did have gallbladder ultrasound which showed a polyp and small stones. Known history of alcohol use. Admitted for IV fluids, pain control and IV antibiotics for cholecystitis. - Discharge Data Discharge Date: 07/29/17 Discharge Disposition: DC/Tfer to Acute Hospital 02 Condition: Fair - Patient Summary/Data Complications: none Hospital Course: Admitted for IV fluids, pain control and antibiotics. CT scan of the admit done after admit and noted cholecystitis. Bilirubin increased this am, febrile on admission and still having pain. Contacted [facility] and spoke with Dr. Ellsworth, surgeon software configuration analyst about case. Accepted patient for transfer for surgical consultation. Family aware. Will transfer S to [place]. - Patient Instructions Diet: NPO Other/Special Instructions: Transfer ALS to Dr. Ellsworth to [facility]. Keep NPO - Discharge Plan Home Medications: Home Meds Albuterol [Proair HFA] 2 puff INH Q6HR PRN 11/02/13 [History] amLODIPine Besylate [Amlodipine Besylate] 10 mg PO DAILY 06/02/16 [History] Calcium Carbonate/Vitamin D3 [Caltrate 600 Plus D3 Tablet] 1 tab PO DAILY [History] Cholecalciferol (Vitamin D3) [Vitamin D3] 2,000 unit PO DAILY 12/11/16 [History] Pravastatin [Pravachol] 40 mg PO DAILY 12/11/16 [History] Umeclidinium Brm/Vilanterol Tr [Anoro Ellipta 62.5-25 Mcg INH] 1 puff INH DAILY 12/11/16 [History] Clopidogrel [Plavix] 75 mg PO DAILY 02/20/17 [History] LORazepam [Ativan] 1 mg PO Q6H PRN 02/20/17 [History] Amitriptyline [Elavil] 25 mg PO BEDTIME 07/28/17 [History] Forms: ED Department Discharge Referrals: Soham Desir MD [Primary Care Provider] - - Discharge Summary/Plan Comment DC Time >30 min.: No Discharge Summary/Plan Comment: Discharge to [facility], transfer per [facility] services. - General Info Date of Service: 07/29/17 Admission Dx/Problem (Free Text: Acute Cholecystitis Functional Status: Reports: Pain Controlled, Ambulating. Denies: Tolerating Diet - Review of Systems General: Reports: Fever, Fatigue HEENT: Reports: No Symptoms Pulmonary: Reports: Shortness of Breath, Cough Cardiovascular: Denies: Chest Pain, Edema, Lightheadedness Gastrointestinal: Reports: Abdominal Pain. Denies: Nausea, Vomiting Genitourinary: Reports: No Symptoms Musculoskeletal: Reports: No Symptoms Skin: Reports: No Symptoms Neurological: Reports: No Symptoms - Patient Data Vitals - Most Recent: Last Vital Signs Temp 98.1 F 07/29/17 07:33 Pulse 78 07/29/17 07:33 Resp 20 07/29/17 07:33 BP 112/56 L 07/29/17 07:33 Pulse Ox 94 L 07/29/17 07:33 Weight - Most Recent: 169 lb 12.8 oz Med Orders - Current: Current Medications Discontinued Medications Albuterol (Ventolin Hfa) 0 gm INH Q6H PRN PRN Reason: Dyspnea Amitriptyline HCl (Elavil) 25 mg PO BEDTIME [facility] Last Admin: 07/28/17 19:53 Dose: 25 mg Amlodipine Besylate (Norvasc) 10 mg PO DAILY [facility] Last Admin: 07/29/17 08:16 Dose: Not Given Aspirin (Aspirin) 324 mg PO ONETIME ONE Stop: 07/28/17 10:37 Last Admin: 07/28/17 10:38 Dose: 324 mg Ceftriaxone Sodium (Rocephin) 1 gm IVPUSH Q24H [facility] Last Admin: 07/28/17 18:34 Dose: Not Given Ceftriaxone Sodium (Rocephin) 1 gm IVPUSH Q24H [facility] Last Admin: 07/28/17 19:39 Dose: Not Given Chlordiazepoxide HCl (Librium) 10 mg PO BID [facility] Last Admin: 07/29/17 08:16 Dose: Not Given Chlordiazepoxide HCl (Librium) Confirm Administered Dose 10 mg .ROUTE .STK-MED ONE Stop: 07/28/17 14:50 Last Admin: 07/28/17 14:51 Dose: Not Given Clopidogrel Bisulfate (Plavix) 75 mg PO DAILY [facility] Last Admin: 07/29/17 08:17 Dose: Not Given Docusate Sodium (Colace) 100 mg PO BID PRN PRN Reason: Constipation Fentanyl (Sublimaze) 25 mcg IVPUSH ONETIME ONE Stop: 07/28/17 10:46 Last Admin: 07/28/17 10:56 Dose: 25 mcg Fentanyl (Sublimaze) 25 mcg IVPUSH ONETIME ONE Stop: 07/28/17 11:16 Last Admin: 07/28/17 11:21 Dose: 25 mcg Fentanyl (Sublimaze) 25 mcg IVPUSH ONETIME ONE Stop: 07/28/17 11:58 Last Admin: 07/28/17 12:02 Dose: 25 mcg Hydromorphone HCl (Dilaudid) 0.5 mg IVPUSH Q2H PRN PRN Reason: Pain (severe 7-10) Last Admin: 07/29/17 10:06 Dose: 0.5 mg Hydromorphone HCl (Dilaudid) Confirm Administered Dose 1 mg .ROUTE .STK-MED ONE Stop: 07/28/17 14:49 Last Admin: 07/28/17 14:50 Dose: Not Given Sodium Chloride (Normal Saline) 1,000 mls @ 500 mls/hr IV STAT [facility] Last Admin: 07/28/17 12:35 Dose: 500 mls/hr Multivitamins/Minerals 10 ml/Folic Acid 1 mg/ Thiamine HCl 100 mg/ Magnesium Sulfate 2 gm / Sodium Chloride 1,015.2 mls @ 175 mls/hr IV ONETIME ONE Stop: 07/28/17 19:40 Last Admin: 07/28/17 14:44 Dose: 175 mls/hr Sodium Chloride (Normal Saline) 1,000 mls @ 125 mls/hr IV ASDIRECTED [facility] Last Admin: 07/29/17 08:10 Dose: 125 mls/hr Levofloxacin/Dextrose 500 mg/ (Premix) 100 mls @ 100 mls/hr IV Q24H [facility] Last Admin: 07/28/17 21:17 Dose: 100 mls/hr Metronidazole 500 mg/ Premix 100 mls @ 100 mls/hr IV Q6H [facility] Last Admin: 07/29/17 01:40 Dose: 100 mls/hr Levofloxacin/Dextrose 500 mg/ (Premix) 100 mls @ 100 mls/hr IV Q24H [facility] Metronidazole 500 mg/ Premix 100 mls @ 100 mls/hr IV Q6H [facility] Ibuprofen (Motrin) Confirm Administered Dose 600 mg .ROUTE .STK-MED ONE Stop: 07/28/17 16:19 Last Admin: 07/28/17 16:26 Dose: Not Given Ibuprofen (Motrin) 600 mg PO Q6H PRN PRN Reason: Fever Last Admin: 07/29/17 01:57 Dose: 600 mg Iopamidol (Isovue-300 (61%)) 100 ml IVPUSH ONETIME ONE Stop: 07/28/17 12:41 Last Admin: 07/28/17 12:35 Dose: 100 ml Iopamidol (Isovue-300 (61%)) 100 ml IVPUSH ONETIME ONE Stop: 07/28/17 14:29 Lorazepam (Ativan) 0.5 - 1 mg IVPUSH Q2H PRN PRN Reason: Withdrawal Symptoms Last Admin: 07/29/17 02:05 Dose: 1 mg Lorazepam (Ativan) Confirm Administered Dose 2 mg .ROUTE .STK-MED ONE Stop: 07/28/17 15:19 Last Admin: 07/28/17 16:26 Dose: Not Given Magnesium Hydroxide (Milk Of Magnesia) 30 ml PO Q12H PRN PRN Reason: Constipation Ptom [Anoro Ellipta (62.5-25 Mcg) 1 puff INH DAILY [facility] Last Admin: 07/29/17 08:17 Dose: Not Given Ondansetron HCl (Zofran) 4 mg IV Q6H PRN PRN Reason: Nausea/Vomiting Pantoprazole Sodium (Protonix Iv) 40 mg IVPUSH BID [facility] Last Admin: 07/29/17 08:12 Dose: 40 mg Pantoprazole Sodium (Protonix Iv) Confirm Administered Dose 40 mg .ROUTE .STK -MED ONE Stop: 07/28/17 14:49 Last Admin: 07/28/17 14:51 Dose: Not Given Simvastatin (Zocor) 20 mg PO BEDTIME [facility] Temazepam (Restoril) 15 mg PO BEDTIME PRN PRN Reason: Insomnia Last Admin: 07/28/17 20:19 Dose: 15 mg Thiamine HCl (Vitamin B-1) 100 mg PO DAILY [facility] Last Admin: 07/29/17 08:17 Dose: Not Given - Exam General: Reports: Alert, Oriented HEENT: Reports: Mucous Membr. Moist/[place] Neck: Reports: Supple Lungs: Reports: Clear to Auscultation, Normal Respiratory Effort Cardiovascular: Reports: Regular Rate, Regular Rhythm GI/Abdominal Exam: Normal Bowel Sounds, Soft, Tender (upper quadrants) Extremities: Normal Inspection, No Pedal Edema Skin: Reports: Warm, Dry Neurological: Reports: No New Focal Deficit *Q Meaningful Use (DIS) - VTE *Q VTE Criteria *Q: - Stroke *Q Stroke Criteria *Q: - AMI *Q AMI Criteria *Q:
== END 2017-07-29 10:10 | DRG 446 ==
LOC: CC.ED 10:20 → CC.MS 13:22
PROVIDERS: ADMIT Nurse Practitioner Family; ATTEND Family Medicine
DX: K80.00 Calculus of gallbladder with acute cholecystitis without obstruction (principal); K70.30 Alcoholic cirrhosis of liver without ascites; F10.10 Alcohol abuse, uncomplicated; J44.9 Chronic obstructive pulmonary disease, unspecified; I10 Essential (primary) hypertension; E78.5 Hyperlipidemia, unspecified; I73.9 Peripheral vascular disease, unspecified; F32.9 Major depressive disorder, single episode, unspecified; E55.9 Vitamin D deficiency, unspecified; Z86.73 Personal history of transient ischemic attack (TIA), and cerebral infarction without residual deficits; Z87.891 Personal history of nicotine dependence; Z79.02 Long term (current) use of antithrombotics/antiplatelets; Z79.899 Other long term (current) drug therapy
CPT/HCPCS: 36415; 71020; 76705; 80053; 82150; 82550; 83605; 83615; 83690; 83880; 84484; 85018; 85025; 85379; 85610; 93005; 96361; 96374; 96376; 99285; A9270; J3010 ×3; J7030; Q9967; 74178; 81001; 93010; C9113; J1170; J1956; J2060; J3411; J3475; J3490

== ENCOUNTER 2019-02-03 10:12 | Emergency (ER) | payer MEDICARE, BC ==
[2019-02-03 10:27] VITALS: BP 136/62
--- NOTE | 2019-02-03 10:50 | EDM.PDOC ---
ED HPI GENERAL MEDICAL PROBLEM - General Chief Complaint: Lower Extremity Injury/Pain Stated Complaint: "Having left leg pain" Time Seen by Provider: 02/03/19 10:25 Source of Information: Reports: Patient, Other (friend) History Limitations: Reports: No Limitations - History of Present Illness INITIAL COMMENTS - FREE TEXT/NARRATIVE: Patient presents to ER with friend for complaints of shortness of breath and weakness. States he is worried about a blood clot in his left leg as last night , his left leg buckled on him. Now left leg feels weaker. Has not had any swelling in left leg. Left arm "feels a little numb". Admits that has severe COPD, uses Anoro and Flovent. No increased cough or fever. Admits last night he took 9 regular strength aspirin because he was worried and took his Plavix. Has been having a tough time with insomnia. Has been "doctoring up concoctions to help otherwise he only gets about an hour". He is currently taking Temazepam , Lorazepam and Amitriptyline. Onset: Sudden Duration: Hour(s):, Waxing/Waning Location: Reports: Lower Extremity, Left Severity: Mild Improves with: Reports: Rest Worsens with: Reports: Movement Associated Symptoms: Reports: Cough, Shortness of Breath, Weakness. Denies: Confusion, Chest Pain, Fever/Chills, Headaches, Loss of Appetite, Malaise, Nausea/Vomiting, Syncope Treatments PHARMACOLOGY PROFESSOR: Reports: Aspirin - Related Data Allergies Allergy/AdvReac Type Severity Reaction Status Date / Time No Known Allergies Allergy Verified 02/03/19 10:34 Home Meds: Home Meds Albuterol [Proair HFA] 2 puff INH Q6HR PRN 11/02/13 [History] amLODIPine Besylate [Amlodipine Besylate] 10 mg PO DAILY 06/02/16 [History] Calcium Carbonate/Vitamin D3 [Caltrate 600 Plus D3 Tablet] 1 tab PO DAILY [History] Cholecalciferol (Vitamin D3) [Vitamin D3] 2,000 unit PO DAILY 12/11/16 [History] Pravastatin [Pravachol] 40 mg PO DAILY 12/11/16 [History] Umeclidinium Brm/Vilanterol Tr [Anoro Ellipta 62.5-25 Mcg INH] 1 puff INH DAILY 12/11/16 [History] Clopidogrel [Plavix] 75 mg PO DAILY 02/20/17 [History] LORazepam [Ativan] 1 mg PO Q6H PRN 02/20/17 [History] Amitriptyline [Elavil] 25 mg PO BEDTIME 07/28/17 [History] Past Medical History HEENT History: Reports: Cataract Cardiovascular History: Reports: High Cholesterol, Hypertension, PVD, Other ( See Below) Other Cardiovascular History: TIA's Respiratory History: Reports: COPD Other Respiratory History: emphysema Genitourinary History: Reports: Other (See Below) Other Genitourinary History: urinary frequency Musculoskeletal History: Reports: Fracture Neurological History: Reports: CVA Psychiatric History: Reports: Depression, Other (See Below) Other Psychiatric History: says he has some depression Endocrine/Metabolic History: Reports: Vitamin D Deficiency Other Endocrine/Metabolic History: hyperlipidemia - Past Surgical History HEENT Surgical History: Reports: Cataract Surgery Cardiovascular Surgical History: Reports: Vascular Surgery GI Surgical History: Reports: Appendectomy, Cholecystectomy Neurological Surgical History: Reports: None Musculoskeletal Surgical History: Reports: Carpal Tunnel Social & Family History - Tobacco Use Smoking Status *Q: Former Smoker Years of Tobacco use: 50 Packs/Tins Daily: 2 Used Tobacco, but Quit: No - Caffeine Use Caffeine Use: Reports: Soda - Alcohol Use Days Per Week of Alcohol Use: 7 Number of Drinks Per Day: 6 Total Drinks Per Week: 42 - Recreational Drug Use Recreational Drug Use: No Review of Systems - Review of Systems Review Of Systems: See Below Constitutional: Reports: Weakness. Denies: Chills, Diaphoresis, Fever Eyes: Denies: Decreased Acuity, Vision Change Ears: Denies: Dizziness, Pain Nose: Reports: No Symptoms Mouth/Throat: Reports: Painful Swallowing Respiratory: Reports: Shortness of Breath, Wheezing, Cough Cardiovascular: Denies: Chest Pain, Palpitations, Syncope GI/Abdominal: Denies: Abdominal Pain, Decreased Appetite, Nausea, Vomiting Genitourinary: Reports: No Symptoms Musculoskeletal: Denies: Leg Pain Skin: Reports: No Symptoms Neurological: Reports: Difficulty Walking, Weakness. Denies: Dizziness, Headache, Trouble Speaking Psychiatric: Reports: Anxiety ED EXAM, GENERAL - Physical Exam Exam: See Below Exam Limited By: No Limitations General Appearance: Alert, WD/WN, Mild Distress Eye Exam: Bilateral Eye: EOMI, PERRL Ears: Normal External Exam, Normal TMs Nose: Normal Inspection, Normal Mucosa, No Blood Throat/Mouth: Normal Inspection, Normal Oropharynx Head: Normocephalic Neck: Normal Inspection, Supple, Non-Tender Respiratory/Chest: No Respiratory Distress, Decreased Breath Sounds, Wheezing Cardiovascular: Regular Rate, Rhythm GI/Abdominal: Normal Bowel Sounds, Soft, Non-Tender Extremities: Normal Inspection, No Pedal Edema. No: Slow Capillary Refill Neurological: Alert, Oriented, CN II-XII Intact, Normal Cognition, Normal Reflexes, No Motor/Sensory Deficits, Abnormal Gait (mild weakness noted in left leg with resistive range of motion). No: Memory Loss Remote Events, Memory Loss Recent Events Psychiatric: Anxious Skin Exam: Warm, Dry Course - Vital Signs Last Recorded V/S: Last Vital Signs Temp 97.1 F 02/03/19 10:26 Pulse 110 H 02/03/19 10:26 Resp 24 H 02/03/19 10:26 BP 136/62 02/03/19 10:26 Pulse Ox 96 02/03/19 10:26 - Orders/Labs/Meds Orders: Active Orders 24 hr Category Date Time Status Chest 2V [CR] Stat Exams 02/03/19 10:21 Taken Head wo Cont [CT] Stat Exams 02/03/19 10:32 Taken Labs: Laboratory Tests 02/03/19 02/03/19 02/03/19 Range/Units 10:20 10:30 10:30 WBC 9.4 (5.0-10.0) 10^3/uL RBC 4.97 (4.50-6.00) 10^6/uL Hgb 15.1 (14.0-18.0) g/dL Hct 43.5 (40.0-54.0) % MCV 87.5 (82.0-94.0) fL MCH 30.4 (27.0-32.0) pg MCHC 34.7 (33.0-38.0) g/dL RDW Coeff of Roland 14.7 (11.0-15.0) % Plt Count 313 (150-400) 10^3/uL Neut % (Auto) 65.3 (35-85) % Lymph % (Auto) 20.3 (10-55) % [place] % (Auto) 9.9 (0-16) % Eos % (Auto) 4.0 (0-5) % Baso % (Auto) 0.5 (0-3) % Neut # (Auto) 6.16 (1.80-7.00) 10^3/uL Lymph # (Auto) 1.91 (1.00-4.80) 10^3/uL [place] # (Auto) 0.93 H (0.00-0.80) 10^3/uL Eos # (Auto) 0.38 (0.00-0.45) 10^3/uL Baso # (Auto) 0.05 10^3/uL D-Dimer, Quantitative 0.32 (0.00-0.50) Sodium 138 (136-145) mEq/L Potassium 4.5 (3.5-5.0) mEq/L Chloride 99 (98-106) mEq/L Carbon Dioxide 28 (21-32) mmol/L BUN 7 D (7-18) mg/dL Creatinine 1.1 (0.7-1.3) mg/dL Est Cr Clr Drug Dosing TNP Estimated GFR (MDRD) > 60 (>=60) mL/min Glucose 103 H (75-99) mg/dL Calcium 8.8 (8.4-10.1) mg/dL Total Bilirubin 0.3 (0.0-1.0) mg/dL AST 15 (15-37) U/L ALT 23 (12-78) U/L Alkaline Phosphatase 94 (46-116) U/L Lactate Dehydrogenase 140 (100-190) U/L Creatine Kinase 130 (35-232) U/L Troponin I < 0.017 (0.00-0.06) ng/mL C-Reactive Protein 1.7 H (0.2-0.8) mg/dL NT-Pro-B Natriuret Pep 115 (0-1000) pg/mL Total Protein 7.6 (6.4-8.2) g/dL Albumin 3.5 (3.4-5.0) g/dL - Re-Assessments/Exams Free Text/Narrative Re-Assessment/Exam: 02/03/19 11:26 Lab results are all normal. Chest xray shows hyperinflation, no infiltrate. CT head per radiology shows no acute changes. Discussed with patient and friend. Although very mild weakness noted in left leg, patient does feel he will be able to return home with use of walker as he has been doing the last 12 hours. Declines admission. Departure - Departure Time of Disposition: 11:28 Disposition: Home, Self-Care 01 Condition: Fair Clinical Impression: Insomnia, Left leg weakness - Discharge Information *PRESCRIPTION DRUG MONITORING PROGRAM REVIEWED*: No *COPY OF PRESCRIPTION DRUG MONITORING REPORT IN PATIENT FLAKITA: No Forms: ED Department Discharge Additional Instructions: 1. Rest 2. Push fluids 3. Consider PT 4. Follow up with Dr. Desir as needed if symptoms improve. - My Orders Last 24 Hours: My Active Orders 02/03/19 10:21 Chest 2V [CR] Stat 02/03/19 10:32 Head wo Cont [CT] Stat - Assessment/Plan Last 24 Hours: My Active Orders 02/03/19 10:21 Chest 2V [CR] Stat 02/03/19 10:32 Head wo Cont [CT] Stat
[2019-02-03 10:57] LABS: CHLORIDE,CL 99 mEq/L (98-106); SODIUM,NA 138 mEq/L (136-145)
== END 2019-02-03 11:40 | disposition home or self-care (01) ==
LOC: CC.ED 10:12
DX: G47.00 Insomnia, unspecified (principal); R53.1 Weakness; R06.02 Shortness of breath; E78.00 Pure hypercholesterolemia, unspecified; I10 Essential (primary) hypertension; J44.9 Chronic obstructive pulmonary disease, unspecified; F32.9 Major depressive disorder, single episode, unspecified; Z87.891 Personal history of nicotine dependence; Z79.899 Other long term (current) drug therapy
CPT/HCPCS: 36415; 70450; 71046; 80053; 82550; 83615; 83880; 84484; 85025; 85379; 86140; 93005; 93010; 99284; 99284-25

== ENCOUNTER 2019-05-18 20:22 | Emergency (ER) | payer MEDICARE, BC ==
[2019-05-18 21:04] LABS: CHLORIDE,CL 99 mEq/L (98-106); SODIUM,NA 136 mEq/L (136-145)
--- NOTE | 2019-05-18 21:58 | EDM.PDOC ---
ED HPI GENERAL MEDICAL PROBLEM - General Chief Complaint: Syncope Stated Complaint: syncope Time Seen by Provider: 05/18/19 20:55 Source of Information: Reports: Patient, Family History Limitations: Reports: No Limitations - History of Present Illness INITIAL COMMENTS - FREE TEXT/NARRATIVE: Enmaneul is a 68 year old male who presents to the ED ambulatory via private vehicle with son with c/o syncopal episode. He reports he was sitting at the dinner table eating, when he believes he may have choked on some corn. Reports he was eating corn on the cob and the next thing he recalls he woke up on the floor. He reports he does not really recall the incident. He reports he believes he hit his head on the table as he has a 2 cm laceration to mid forehead as well as a 1 cm laceration noted to upper lip. He denies any complaints currently, other than some pain to his right medial thigh. He reports he is concerned about a blood clot. Reports he must've bumped it on something when he fell as there is a lump and it is tender to touch. He reports he takes Plavix daily. He reports he hasn't been sleeping well lately and is scheduled to have a sleep test in the near future. He reports he did not sleep much last night, but other than that has been feeling well. Denies any ETOH use this evening. Denies any dizziness, headache, N/T, weakness, N/V/D, chest pain, SOB worse than baseline, edema, urinary symptoms. Son reports that when he arrived at house, patient's plate/food and silverware were all over the floor and there was blood on the table. He reports that it appears his head hit the table on the way down as well. Onset: Today, Sudden Duration: Resolved Prior to Arrival Associated Symptoms: Reports: Syncope. Denies: Confusion, Chest Pain, Cough, cough w sputum, Diaphoresis, Fever/Chills, Headaches, Loss of Appetite, Malaise , Nausea/Vomiting, Rash, Seizure, Shortness of Breath, Weakness - Related Data Allergies Allergy/AdvReac Type Severity Reaction Status Date / Time No Known Allergies Allergy Verified 05/18/19 21:19 Home Meds: Home Meds Albuterol [Proair HFA] 2 puff INH Q6HR PRN 11/02/13 [History] amLODIPine Besylate [Amlodipine Besylate] 10 mg PO DAILY 06/02/16 [History] Calcium Carbonate/Vitamin D3 [Caltrate 600 Plus D3 Tablet] 1 tab PO DAILY [History] Cholecalciferol (Vitamin D3) [Vitamin D3] 2,000 unit PO DAILY 12/11/16 [History] Pravastatin [Pravachol] 40 mg PO DAILY 12/11/16 [History] Umeclidinium Brm/Vilanterol Tr [Anoro Ellipta 62.5-25 Mcg INH] 1 puff INH DAILY 12/11/16 [History] Clopidogrel [Plavix] 75 mg PO DAILY 02/20/17 [History] LORazepam [Ativan] 1 mg PO Q6H PRN 02/20/17 [History] Amitriptyline [Elavil] 25 mg PO BEDTIME 07/28/17 [History] Past Medical History HEENT History: Reports: Cataract Cardiovascular History: Reports: High Cholesterol, Hypertension, PVD, Other ( See Below) Other Cardiovascular History: TIA's Respiratory History: Reports: COPD Other Respiratory History: emphysema Genitourinary History: Reports: Other (See Below) Other Genitourinary History: urinary frequency Musculoskeletal History: Reports: Fracture Neurological History: Reports: CVA Psychiatric History: Reports: Depression, Other (See Below) Other Psychiatric History: says he has some depression Endocrine/Metabolic History: Reports: Vitamin D Deficiency Other Endocrine/Metabolic History: hyperlipidemia - Past Surgical History HEENT Surgical History: Reports: Cataract Surgery Cardiovascular Surgical History: Reports: Vascular Surgery GI Surgical History: Reports: Appendectomy, Cholecystectomy Neurological Surgical History: Reports: None Musculoskeletal Surgical History: Reports: Carpal Tunnel Social & Family History - Caffeine Use Caffeine Use: Reports: Soda ED ROS GENERAL - Review of Systems Review Of Systems: ROS reveals no pertinent complaints other than HPI. - Physical Exam Exam: See Below Exam Limited By: No Limitations General Appearance: Alert, WD/WN, No Apparent Distress Eye Exam: Bilateral Eye: EOMI, Normal Fundi, Normal Inspection, PERRL Ears: Normal External Exam, Normal Canal, Hearing Grossly Normal, Normal TMs Nose: Normal Inspection, Normal Mucosa, No Blood Throat/Mouth: Normal Teeth, Normal Oropharynx, Other (swelling to upper lip, bruising noted to internal upper lip, laceration to external upper lip) Head Exam: Normocephalic, Other (2 cm laceration to mid forehead, 1 cm laceartion to upper lip) Neck: Normal Inspection, Supple, Non-Tender, Full Range of Motion Respiratory/Chest: No Respiratory Distress, Lungs Clear, No Accessory Muscle Use , Chest Non-Tender, Decreased Breath Sounds Cardiovascular: Normal Peripheral Pulses, Regular Rate, Rhythm, No Edema, No Gallop, No JVD, No Murmur, No Rub GI/Abdominal: Normal Bowel Sounds, Soft, Non-Tender, No Organomegaly, No Distention, No Abnormal Bruit, No Mass Neuro Exam (Abbreviated): Alert, Oriented, CN II-XII Intact, Normal Cognition, Normal Gait, Normal Reflexes, No Motor/Sensory Deficits Back Exam: Normal Inspection, Full Range of Motion, NT Extremities: Normal Inspection, Normal Range of Motion, Non-Tender, No Pedal Edema, Normal Capillary Refill, Other (rash to bilatearl arms ) Psychiatric: Normal Affect, Normal Mood Skin Exam: Warm, Dry, Intact, Rash (bilateral upper extremities) Course - Orders/Labs/Meds Orders: Active Orders 24 hr Category Date Time Status Chest 2V [CR] Stat Exams 05/18/19 20:25 Taken Femur Min 2V Rt [CR] Stat Exams 05/18/19 20:25 Taken Head wo Cont [CT] Stat Exams 05/18/19 20:25 Taken Labs: Laboratory Tests 05/18/19 05/18/19 05/18/19 Range/Units 20:42 20:42 20:42 WBC 8.5 (5.0-10.0) 10^3/uL RBC 4.37 L (4.50-6.00) 10^6/uL Hgb 13.3 L (14.0-18.0) g/dL Hct 39.5 L (40.0-54.0) % MCV 90.4 (82.0-94.0) fL MCH 30.4 (27.0-32.0) pg MCHC 33.7 (33.0-38.0) g/dL RDW Coeff of Roland 15.2 H (11.0-15.0) % Plt Count 317 (150-400) 10^3/uL Neut % (Auto) 63.8 (35-85) % Lymph % (Auto) 20.7 (10-55) % [place] % (Auto) 11.0 (0-16) % Eos % (Auto) 3.9 (0-5) % Baso % (Auto) 0.6 (0-3) % Neut # (Auto) 5.41 (1.80-7.00) 10^3/uL Lymph # (Auto) 1.75 (1.00-4.80) 10^3/uL [place] # (Auto) 0.93 H (0.00-0.80) 10^3/uL Eos # (Auto) 0.33 (0.00-0.45) 10^3/uL Baso # (Auto) 0.05 10^3/uL PT 10.1 (9.7-12.3) SEC INR 0.98 (0.92-1.18) APTT 25.4 (23.2-32.3) SEC Sodium 136 (136-145) mEq/L Potassium 3.9 (3.5-5.0) mEq/L Chloride 99 (98-106) mEq/L Carbon Dioxide 28 (21-32) mmol/L BUN 9 (7-18) mg/dL Creatinine 0.9 (0.7-1.3) mg/dL Est Cr Clr Drug Dosing TNP Estimated GFR (MDRD) > 60 (>=60) mL/min Glucose 89 (75-99) mg/dL Calcium 8.2 L (8.4-10.1) mg/dL Lactate Dehydrogenase 131 (100-190) U/L Creatine Kinase 116 (35-232) U/L Troponin I < 0.017 (0.00-0.06) ng/mL - Radiology Interpretation Free Text/Narrative:: Negative for acute changes. CT Results Date: 05/18/19 CT Results Time: 21:28 - Re-Assessments/Exams Free Text/Narrative Re-Assessment/Exam: Discussed normal lab, CT, and EKG results with patient and son. Discussed possibility of decreased O2 from coughing/choking on corn as cause of syncope vs. unknown etiology. Discussed possible causes of syncope. Recommend that patient follow up with PCP for further workup if deemed necessary. Departure - Departure Time of Disposition: 21:55 Disposition: Home, Self-Care 01 Condition: Good Clinical Impression: Syncope Qualifiers: Syncope type: unspecified Qualified Code(s): R55 - Syncope and collapse - Discharge Information *PRESCRIPTION DRUG MONITORING PROGRAM REVIEWED*: Not Applicable *COPY OF PRESCRIPTION DRUG MONITORING REPORT IN PATIENT FLAKITA: Not Applicable Instructions: Syncope, [id number] Referrals: Soham Desir MD [Primary Care Provider] - Forms: ED Department Discharge Additional Instructions: - Discussed normal labs, xrays, EKG, and CT head with patient and son - Recommend staying hydrated - No strenuous activities - Recommend follow up with Dr. Desir in 5-7 days - Return to ED for any emergent needs - My Orders Last 24 Hours: My Active Orders 05/18/19 20:25 Chest 2V [CR] Stat Femur Min 2V Rt [CR] Stat Head wo Cont [CT] Stat - Assessment/Plan Last 24 Hours: My Active Orders 05/18/19 20:25 Chest 2V [CR] Stat Femur Min 2V Rt [CR] Stat Head wo Cont [CT] Stat Plan: Patient was monitored on telemetry during ED stay. Remains NSR. Labs, EKG, xrays and head CT all normal without acute changes. Patient remains alert and oriented throughout stay. Will discharge home with close follow up with PCP this week.
[2019-05-19 02:34] VITALS: BP 151/82; PULSE 86
== END 2019-05-18 22:05 | disposition home or self-care (01) ==
LOC: CC.ED 20:22
DX: R55 Syncope and collapse (principal); S01.81XA Laceration without foreign body of other part of head, initial encounter; S01.511A Laceration without foreign body of lip, initial encounter; I10 Essential (primary) hypertension; E78.00 Pure hypercholesterolemia, unspecified; F32.9 Major depressive disorder, single episode, unspecified; J44.9 Chronic obstructive pulmonary disease, unspecified; Z79.02 Long term (current) use of antithrombotics/antiplatelets; Z79.899 Other long term (current) drug therapy; W19.XXXA Unspecified fall, initial encounter; W22.8XXA Striking against or struck by other objects, initial encounter
CPT/HCPCS: 12011; 12020; 36415; 70450; 71046; 80048; 82550; 83615; 84484; 85025; 85610; 85730; 93005; 93010; 99284; 99284-25

== ENCOUNTER 2021-04-13 08:20 | Inpatient (IN) | payer MEDICARE, BC ==
[2021-04-13] MEDS ORDERED: Acetaminophen 325 MG Tab PO ONE (08:37)
[2021-04-13] MEDS ORDERED: Acetaminophen 500 MG Tab PO ONE (08:46)
[2021-04-13] MEDS ORDERED: Sodium Chloride 0.9% 1,000 ML IV SCH (09:00)
[2021-04-13 09:14] LABS: CHLORIDE,CL 100 mEq/L (98-106); SODIUM,NA 136 mEq/L (136-145)
--- NOTE | 2021-04-13 10:02 | EDM.PDOC ---
ED HPI GENERAL MEDICAL PROBLEM - General Chief Complaint: General Stated Complaint: weakness Time Seen by Provider: 04/13/21 09:05 Source of Information: Reports: Patient, RN History Limitations: Reports: No Limitations - History of Present Illness INITIAL COMMENTS - FREE TEXT/NARRATIVE: [place] went outside and became very hot. He became overwhelmed with the heat and he drank 4 beers and no water. He developed some chills so he turned off the air in his house and when his friend checked on him this morning it was 85 in his bedroom. He states that he has drank about 10 oz of fluids since coming home. He feels like he needs to urinate and can't. When cathed in the ER for sample no urine returned. IV fluids started. He states that he has cough that is chronic with his COPD. Onset: Today Duration: Getting Worse Location: Reports: Generalized Associated Symptoms: Reports: Fever/Chills, Weakness. Denies: Confusion, Nausea/Vomiting - Related Data Allergies Allergy/AdvReac Type Severity Reaction Status Date / Time No Known Allergies Allergy Verified 04/13/21 08:48 Home Meds: Home Meds Albuterol [Proair HFA] 2 puff INH Q6HR PRN 11/02/13 [History] amLODIPine Besylate [Amlodipine Besylate] 10 mg PO DAILY 06/02/16 [History] Pravastatin [Pravachol] 20 mg PO DAILY 12/11/16 [History] Clopidogrel [Plavix] 75 mg PO DAILY 02/20/17 [History] LORazepam [Ativan] 0.5 mg PO Q6H PRN 02/20/17 [History] Tamsulosin [Tamsulosin 24 Hr] 0.4 mg PO BID 12/06/19 [History] Temazepam [Restoril] 15 mg PO BEDTIME PRN 12/06/19 [History] Albuterol [Ventolin HFA] 2 puff Q4H PRN 04/13/21 [History] Fluticasone/Umeclidin/Vilanter [Trelegy Ellipta 100-62.5-25] 1 inh DAILY 04/13/21 [History] Roflumilast [Daliresp] 500 mcg PO DAILY 04/13/21 [History] predniSONE [Prednisone] 5 mg PO DAILY 04/13/21 [History] Past Medical History HEENT History: Reports: Cataract Cardiovascular History: Reports: High Cholesterol, Hypertension, PVD, Other (See Below) Other Cardiovascular History: TIA's Respiratory History: Reports: COPD Other Respiratory History: emphysema Genitourinary History: Reports: BPH, Other (See Below) Other Genitourinary History: urinary frequency Musculoskeletal History: Reports: Fracture Neurological History: Reports: CVA Psychiatric History: Reports: Anxiety, Depression Other Psychiatric History: says he has some depression Endocrine/Metabolic History: Reports: Vitamin D Deficiency Other Endocrine/Metabolic History: hyperlipidemia - Past Surgical History HEENT Surgical History: Reports: Cataract Surgery Cardiovascular Surgical History: Reports: Vascular Surgery Respiratory Surgical History: Reports: None GI Surgical History: Reports: Appendectomy, Cholecystectomy Neurological Surgical History: Reports: None Musculoskeletal Surgical History: Reports: Carpal Tunnel Social & Family History - Family History Family Medical History: No Pertinent Family History - Tobacco Use Tobacco Use Status *Q: Former Tobacco User Used Tobacco, but Quit: Yes Month/Year Tobacco Last Used: 2010 - Caffeine Use Caffeine Use: Reports: Soda - Alcohol Use Days Per Week of Alcohol Use: 4 Number of Drinks Per Day: 4 Total Drinks Per Week: 16 - Recreational Drug Use Recreational Drug Use: No - Living Situation & Occupation Living situation: Reports: Single, Alone Occupation: Retired ED ROS GENERAL - Review of Systems Review Of Systems: See Below Constitutional: Reports: Fever, Chills, Weakness HEENT: Reports: No Symptoms Respiratory: Reports: Shortness of Breath, Cough Cardiovascular: Reports: No Symptoms GI/Abdominal: Reports: No Symptoms : Reports: Urinary Retention Musculoskeletal: Reports: No Symptoms Skin: Reports: No Symptoms Neurological: Reports: No Symptoms Psychiatric: Reports: Anxiety ED EXAM, GENERAL - Physical Exam Exam: See Below Exam Limited By: No Limitations General Appearance: Alert, WD/WN, Mild Distress Eye Exam: Bilateral Eye: PERRL Ears: Normal External Exam, Normal Canal, Normal TMs Nose: Normal Inspection Throat/Mouth: Normal Inspection, Normal Oropharynx Head: Atraumatic, Normocephalic Neck: Normal Inspection, Supple, Non-Tender, Full Range of Motion Respiratory/Chest: No Respiratory Distress, Decreased Breath Sounds. No: Rhonchi, Wheezing Cardiovascular: Regular Rate, Rhythm, No Edema GI/Abdominal: Normal Bowel Sounds, Soft, Non-Tender Extremities: Normal Inspection, No Pedal Edema, Normal Capillary Refill Neurological: Alert, Oriented Skin Exam: Warm, Dry, Intact Course - Vital Signs Last Recorded V/S: Last Vital Signs Temp 99.2 F 04/13/21 19:25 Pulse 86 04/13/21 19:25 Resp 18 04/13/21 19:25 BP 137/72 04/13/21 19:25 Pulse Ox 96 04/13/21 19:25 - Orders/Labs/Meds Orders: Active Orders 24 hr Category Date Time Status CXR [Chest 1V Frontal] [CR] Stat Exams 04/13/21 08:34 Taken CULTURE URINE [RM] Routine Lab 04/13/21 10:07 Received Medication Orders Acetaminophen (Acetaminophen 325 Mg Tab) 650 mg PO Q4H PRN PRN Reason: Fever Last Admin: 04/13/21 19:46 Dose: 650 mg Documented by: PRABHA Albuterol (Albuterol 8 Gm Inhaler) 0 gm INH Q4H PRN PRN Reason: Dyspnea Amlodipine Besylate (Amlodipine 10 Mg Tab) 10 mg PO DAILY [facility] Last Admin: 04/13/21 11:56 Dose: 10 mg Documented by: FAB Ceftriaxone Sodium (Ceftriaxone 1 Gm Vial) 1 gm IVPUSH Q24H [facility] Last Admin: 04/13/21 11:56 Dose: 1 gm Documented by: FAB Clopidogrel Bisulfate (Clopidogrel 75 Mg Tab) 75 mg PO DAILY [facility] Last Admin: 04/13/21 11:56 Dose: 75 mg Documented by: FAB Enoxaparin Sodium (Enoxaparin 40 Mg/0.4 Ml Syringe) 40 mg SUBCUT Q24H [facility] Sodium Chloride (Normal Saline) 1,000 mls @ 100 mls/hr IV ASDIRECTED [facility] Last Admin: 04/13/21 13:00 Dose: 100 mls/hr Documented by: FAB Lorazepam (Lorazepam 0.5 Mg Tab) 0.5 mg PO Q6H PRN PRN Reason: Anxiety Non-Formulary Medication (Fluticasone/Umeclidin/Vilanter) 1 inh INH DAILY [facility] Roflumilast [ Daliresp] 500 Mcg Tablet 500 mcg PO DAILY [facility] Pantoprazole Sodium (Pantoprazole 40 Mg Vial) 40 mg IV Q12H [facility] Phenazopyridine HCl (Phenazopyridine 95 Mg Tab) 95 mg PO TIDPC PRN PRN Reason: Dysuria Last Admin: 04/13/21 19:25 Dose: 95 mg Documented by: PRABHA Prednisone (Prednisone 5 Mg Tab) 5 mg PO DAILY [facility] Simvastatin (Simvastatin 10 Mg Tab) 10 mg PO BEDTIME [facility] Last Admin: 04/13/21 19:26 Dose: 10 mg Documented by: PRABHA Sodium Chloride (Sodium Chloride 0.9% 10 Ml Syringe) 10 ml FLUSH ASDIRECTED PRN PRN Reason: Keep Vein Open Tamsulosin HCl (Tamsulosin 0.4 Mg Cap.Er) 0.4 mg PO BID [facility] Last Admin: 04/13/21 19:26 Dose: 0.4 mg Documented by: PRABHA Temazepam (Temazepam 15 Mg Cap) 15 mg PO BEDTIME PRN PRN Reason: Sleep Labs: Laboratory Tests 04/13/21 04/13/21 04/13/21 Range/Units 08:44 08:54 08:54 WBC 14.9 H (4.0-11.0) 10^3/uL RBC 4.44 L (4.50-6.00) x10^6/uL Hgb 13.7 L (14.0-18.0) g/dL Hct 40.3 L (42.0-52.0) % MCV 90.8 (83.0-97.0) fL MCH 30.9 (27.0-32.0) pg MCHC 34.0 (32.0-36.0) g/dL RDW Coeff of Roland 13.7 (11.0-15.0) % Plt Count 265 (150-400) 10^3/uL Immature Gran % (Auto) Rn Geriatric Neut % (Auto) Rn Geriatric Lymph % (Auto) Rn Geriatric Runnels % (Auto) Rn Geriatric Eos % (Auto) Rn Geriatric Baso % (Auto) Rn Geriatric Neut # (Auto) Rn Geriatric Lymph # (Auto) Rn Geriatric Runnels # (Auto) Rn Geriatric Eos # (Auto) Rn Geriatric Baso # (Auto) Rn Geriatric Immature Gran # (Auto) Rn Geriatric Add Manual Diff Yes Neutrophils % (Manual) 95 H (35-85) % Lymphocytes % (Manual) 5 L (21-55) % Absolute Neutrophils 14.16 H (1.80-7.00) 10^3/uL Lymphocytes # (Manual) 0.75 L (1.00-4.80) 10^3/uL Sodium 136 (136-145) mEq/L Potassium 3.6 (3.5-5.0) mEq/L Chloride 100 (98-106) mEq/L Carbon Dioxide 26 (21-32) mmol/L BUN 11 (7-18) mg/dL Creatinine 1.2 (0.7-1.3) mg/dL Est Cr Clr Drug Dosing 53.83 mL/min Estimated GFR (MDRD) 60 (>=60) mL/min Glucose 81 (75-99) mg/dL Lactic Acid (0.4-2.0) mmol/L Calcium 8.0 L (8.4-10.1) mg/dL Total Bilirubin 1.5 H (0.0-1.0) mg/dL AST 27 (15-37) U/L ALT 29 (12-78) U/L Alkaline Phosphatase 90 (46-116) U/L Lactate Dehydrogenase 128 (100-190) U/L Creatine Kinase 63 (35-232) U/L Troponin I < 0.017 (0.00-0.06) ng/mL C-Reactive Protein 9.9 H (0.2-0.8) mg/dL Total Protein 6.6 (6.4-8.2) g/dL Albumin 3.3 L (3.4-5.0) g/dL Urine Color Dark yellow (YELLOW) Urine Appearance Slightly cloudy (CLEAR) Urine pH 5.0 (4.5-8.0) Ur Specific Crescent 1.025 H (1.003-1.020) Urine Protein 30 H (NEGATIVE) mg/dL Urine Glucose (UA) Negative (NEGATIVE) mg/dL Urine Ketones Trace H (NEGATIVE) mg/dL Urine Occult Blood Trace-intact H (NEGATIVE) Urine Nitrite Positive H (NEGATIVE) Urine Bilirubin Small H (NEGATIVE) Urine Urobilinogen 0.2 (0.2-1.0) EU/dL Ur Leukocyte Esterase Small H (NEGATIVE) Urine RBC 5-10 H (0-5) /HPF Urine WBC 50-75 H (0-5) /HPF Ur Squamous Epith Cells Few H (NOT SEEN) /HPF Urine Bacteria Few H (NOT SEEN) /HPF Urinalysis Comment 04/13/21 Range/Units 08:54 WBC (4.0-11.0) 10^3/uL RBC (4.50-6.00) x10^6/uL Hgb (14.0-18.0) g/dL Hct (42.0-52.0) % MCV (83.0-97.0) fL MCH (27.0-32.0) pg MCHC (32.0-36.0) g/dL RDW Coeff of Roland (11.0-15.0) % Plt Count (150-400) 10^3/uL Immature Gran % (Auto) Neut % (Auto) Lymph % (Auto) Runnels % (Auto) Eos % (Auto) Baso % (Auto) Neut # (Auto) Lymph # (Auto) Runnels # (Auto) Eos # (Auto) Baso # (Auto) Immature Gran # (Auto) Add Manual Diff Neutrophils % (Manual) (35-85) % Lymphocytes % (Manual) (21-55) % Absolute Neutrophils (1.80-7.00) 10^3/uL Lymphocytes # (Manual) (1.00-4.80) 10^3/uL Sodium (136-145) mEq/L Potassium (3.5-5.0) mEq/L Chloride (98-106) mEq/L Carbon Dioxide (21-32) mmol/L BUN (7-18) mg/dL Creatinine (0.7-1.3) mg/dL Est Cr Clr Drug Dosing mL/min Estimated GFR (MDRD) (>=60) mL/min Glucose (75-99) mg/dL Lactic Acid 1.5 (0.4-2.0) mmol/L Calcium (8.4-10.1) mg/dL Total Bilirubin (0.0-1.0) mg/dL AST (15-37) U/L ALT (12-78) U/L Alkaline Phosphatase (46-116) U/L Lactate Dehydrogenase (100-190) U/L Creatine Kinase (35-232) U/L Troponin I (0.00-0.06) ng/mL C-Reactive Protein (0.2-0.8) mg/dL Total Protein (6.4-8.2) g/dL Albumin (3.4-5.0) g/dL Urine Color (YELLOW) Urine Appearance (CLEAR) Urine pH (4.5-8.0) Ur Specific Crescent (1.003-1.020) Urine Protein (NEGATIVE) mg/dL Urine Glucose (UA) (NEGATIVE) mg/dL Urine Ketones (NEGATIVE) mg/dL Urine Occult Blood (NEGATIVE) Urine Nitrite (NEGATIVE) Urine Bilirubin (NEGATIVE) Urine Urobilinogen (0.2-1.0) EU/dL Ur Leukocyte Esterase (NEGATIVE) Urine RBC (0-5) /HPF Urine WBC (0-5) /HPF Ur Squamous Epith Cells (NOT SEEN) /HPF Urine Bacteria (NOT SEEN) /HPF Urinalysis Comment Meds: Medications Generic Name Dose Route Start Last Admin Trade Name Freq PRN Reason Stop Dose Admin Acetaminophen 650 mg 04/13/21 19:35 04/13/21 19:46 Acetaminophen 325 Mg Tab PO 650 mg Q4H PRN Administration Fever Albuterol 0 gm 04/13/21 11:42 Albuterol 8 Gm Inhaler INH Q4H PRN Dyspnea Amlodipine Besylate 10 mg 04/13/21 12:00 04/13/21 11:56 Amlodipine 10 Mg Tab PO 10 mg DAILY GÓMEZ Administration Ceftriaxone Sodium 1 gm 04/13/21 12:00 04/13/21 11:56 Ceftriaxone 1 Gm Vial IVPUSH 1 gm Q24H GÓMEZ Administration Clopidogrel Bisulfate 75 mg 04/13/21 12:00 04/13/21 11:56 Clopidogrel 75 Mg Tab PO 75 mg DAILY GÓMEZ Administration Enoxaparin Sodium 40 mg 04/14/21 08:00 Enoxaparin 40 Mg/0.4 Ml Syringe SUBCUT Q24H GÓMEZ Sodium Chloride 1,000 mls @ 100 mls/hr 04/13/21 12:45 04/13/21 13:00 Normal Saline IV 100 mls/hr ASDIRECTED GÓMEZ Administration Lorazepam 0.5 mg 04/13/21 11:04 Lorazepam 0.5 Mg Tab PO Q6H PRN Anxiety Non-Formulary Medication 1 inh 04/13/21 11:00 Fluticasone/Umeclidin/Vilanter INH DAILY GÓMEZ Roflumilast [ 500 mcg 04/14/21 08:00 Daliresp] 500 Mcg PO Tablet DAILY GÓMEZ Pantoprazole Sodium 40 mg 04/14/21 08:00 Pantoprazole 40 Mg Vial IV Q12H GÓMEZ Phenazopyridine HCl 95 mg 04/13/21 18:28 04/13/21 19:25 Phenazopyridine 95 Mg Tab PO 95 mg TIDPC PRN Administration Dysuria Prednisone 5 mg 04/14/21 08:00 Prednisone 5 Mg Tab PO DAILY GÓMEZ Simvastatin 10 mg 04/13/21 20:00 04/13/21 19:26 Simvastatin 10 Mg Tab PO 10 mg BEDTIME GÓMEZ Administration Sodium Chloride 10 ml 04/13/21 11:50 Sodium Chloride 0.9% 10 Ml Syringe FLUSH ASDIRECTED PRN Keep Vein Open Tamsulosin HCl 0.4 mg 04/13/21 20:00 04/13/21 19:26 Tamsulosin 0.4 Mg Cap.Er PO 0.4 mg BID GÓMEZ Administration Temazepam 15 mg 04/13/21 10:57 Temazepam 15 Mg Cap PO BEDTIME PRN Sleep Discontinued Medications Generic Name Dose Route Start Last Admin Trade Name Freq PRN Reason Stop Dose Admin Acetaminophen 1,000 mg 04/13/21 08:37 04/13/21 08:58 Acetaminophen 325 Mg Tab PO 04/13/21 08:38 Not Given NOW ONE Acetaminophen 1,000 mg 04/13/21 08:46 04/13/21 08:55 Acetaminophen 500 Mg Tab PO 04/13/21 08:47 1,000 mg ONETIME ONE Administration Sodium Chloride 1,000 mls @ 250 mls/hr 04/13/21 09:00 04/13/21 08:57 Normal Saline IV 04/13/21 12:57 250 mls/hr ASDIRECTED GÓMEZ Administration Non-Formulary Medication 2 puff 04/13/21 10:57 Albuterol INH Q6HR PRN Dyspnea Pantoprazole Sodium 40 mg 04/13/21 12:00 04/13/21 11:54 Pantoprazole 40 Mg Vial IVPUSH 04/13/21 12:01 40 mg ONETIME ONE Administration - Re-Assessments/Exams Free Text/Narrative Re-Assessment/Exam: 04/13/[address] Desir. He will be admitted to acute care with IV fluids and repeat labs in the AM. Departure - Departure Time of Disposition: 10:10 Disposition: Admitted As Inpatient 64 Clinical Impression: UTI (urinary tract infection) Qualifiers: Urinary tract infection type: site unspecified Hematuria presence: with hematuria Qualified Code(s): N39.0 - Urinary tract infection, site not specified; R31.9 - Hematuria, unspecified - Discharge Information *PRESCRIPTION DRUG MONITORING PROGRAM REVIEWED*: Not Applicable *COPY OF PRESCRIPTION DRUG MONITORING REPORT IN PATIENT FLAKITA: Not Applicable Sepsis Event Note (ED) - Evaluation Sepsis Screening Result: Possible Severe Sepsis Risk - Focused Exam Vital Signs: Vital Signs Temp Temp Pulse Resp BP Pulse Ox 04/13/21 10:30 100.1 F 99 20 120/73 95 04/13/21 10:04 100.2 F 99 23 H 129/72 98 04/13/21 09:33 100.7 F H 103 H 25 H 122/69 96 04/13/21 09:25 100.2 F 04/13/21 08:55 101.6 F H 101.6 F H 112 H 28 H 123/65 97 04/13/21 08:30 125 H 28 H 111/63 96 04/13/21 08:20 101.7 F H 130 H 24 H 90/54 L 96 - Problem List & Annotations (1) UTI (urinary tract infection) SNOMED Code(s): 85879598 Code(s): N39.0 - URINARY TRACT INFECTION, SITE NOT SPECIFIED Status: Acute Priority: High Current Visit: Yes Qualifiers: Urinary tract infection type: site unspecified Hematuria presence: with hematuria Qualified Code(s): N39.0 - Urinary tract infection, site not specified; R31.9 - Hematuria, unspecified (2) Anxiety SNOMED Code(s): 97338610 Code(s): F41.9 - ANXIETY DISORDER, UNSPECIFIED Status: Acute Priority: Medium Current Visit: No (3) COPD (chronic obstructive pulmonary disease) SNOMED Code(s): 46179130 Code(s): J44.9 - CHRONIC OBSTRUCTIVE PULMONARY DISEASE, UNSPECIFIED Status: Chronic Priority: Medium Current Visit: No Qualifiers: COPD type: unspecified COPD Qualified Code(s): J44.9 - Chronic obstructive pulmonary disease, unspecified (4) HTN, Benign hypertension SNOMED Code(s): 94554117 Code(s): I10 - ESSENTIAL (PRIMARY) HYPERTENSION Status: Chronic Current Visit: No - Problem List Review Problem List Initiated/Reviewed/Updated: Yes - My Orders Last 24 Hours: My Active Orders 04/13/21 08:34 CXR [Chest 1V Frontal] [CR] Stat 04/13/21 10:07 CULTURE URINE [RM] Routine - Assessment/Plan Admission H&P: Please use this note as an admission H&P Last 24 Hours: My Active Orders 04/13/21 08:34 CXR [Chest 1V Frontal] [CR] Stat 04/13/21 10:07 CULTURE URINE [RM] Routine
[2021-04-13] MEDS ORDERED: ALBUTEROL INH PRN (10:57)
[2021-04-13] MEDS ORDERED: Albuterol 8 GM Inhaler INH PRN (11:42)
[2021-04-13] MEDS ORDERED: Sodium Chloride 0.9% 10 ML Syringe FLUSH PRN (11:50)
[2021-04-13] MEDS: cefTRIAXone 1 GM Vial IVPUSH SCH (11:56)
[2021-04-13] MEDS: Clopidogrel 75 MG Tab PO SCH (11:56)
[2021-04-13] MEDS: amLODIPine 10 MG Tab PO SCH (11:56)
[2021-04-13] MEDS ORDERED: Pantoprazole 40 MG Vial IVPUSH ONE (12:00)
[2021-04-13] MEDS: Sodium Chloride 0.9% 1,000 ML IV SCH ×2 (13:00→22:14)
[2021-04-13] MEDS: Phenazopyridine 95 MG Tab PO PRN (19:25)
[2021-04-13] MEDS: Tamsulosin 0.4 MG Cap.ER PO SCH (19:26)
[2021-04-13] MEDS: Simvastatin 10 MG Tab PO SCH (19:26)
[2021-04-13] MEDS: Acetaminophen 325 MG Tab PO PRN ×2 (19:46→23:59)
[2021-04-13] MEDS: Temazepam 15 MG Cap PO PRN (23:41)
[2021-04-13] MEDS: LORazepam 0.5 MG Tab PO PRN (23:41)
[2021-04-14 07:40] LABS: CHLORIDE,CL 104 mEq/L (98-106); SODIUM,NA 140 mEq/L (136-145)
[2021-04-14] MEDS: Tamsulosin 0.4 MG Cap.ER PO SCH ×2 (07:50→19:32)
[2021-04-14] MEDS: Enoxaparin 40 MG/0.4 ML Syringe SUBCUT SCH (07:50)
[2021-04-14] MEDS: Pantoprazole 40 MG Vial IV SCH ×2 (07:50→19:41)
[2021-04-14] MEDS: Clopidogrel 75 MG Tab PO SCH (07:50)
[2021-04-14] MEDS: amLODIPine 10 MG Tab PO SCH (07:50)
[2021-04-14] MEDS: predniSONE 5 MG Tab PO SCH (07:50)
[2021-04-14] MEDS: Roflumilast [Daliresp] 500 MCG Tablet PO SCH (07:51)
[2021-04-14] MEDS: cefTRIAXone 1 GM Vial IVPUSH SCH (10:59)
[2021-04-14] MEDS: [UNRECOGNIZED DRUG - OTHER] INH SCH (10:59)
[2021-04-14] MEDS: UMECLIDINIUM INH SCH (10:59)
[2021-04-14] MEDS: VILANTEROL INH SCH (10:59)
[2021-04-14] MEDS: Sulfamethoxazole/Trimethoprim 800-160 MG Tab PO SCH ×2 (10:59→19:32)
--- NOTE | 2021-04-14 11:39 | PN ---
DATE: 04/14/2021 S: Mr. Horowitz was admitted yesterday for weakness, I believe fever and not feeling well. He was found to have UTI, was put in the hospital on Rocephin, T- max last night of 100.4, but otherwise his vital signs look stable. He is a known patient to me with history of advanced COPD as well as hypertension. O: VITAL SIGNS: This morning, his temp is 98.4. His BP is fine. He is satting 98% on 2 L. HEENT: Grossly benign. NECK: Neck veins are flat. LUNGS: Lung sounds are diminished throughout. CARDIAC: Tones are regular. ABDOMEN: Soft and nontender. He has no flank pain to palpation. EXTREMITIES: No peripheral edema is seen. ASSESSMENT: 1. URINARY TRACT INFECTION, LIKELY ACUTE PROSTATITIS. 2. HYPERTENSION, CONTROLLED. 3. CHRONIC OBSTRUCTIVE PULMONARY DISEASE. 4. DEPRESSION WITH ANXIETY. 5. HISTORY OF BENIGN PROSTATIC HYPERPLASIA. P: The patient will continue with IV Rocephin. We do have a preliminary culture showing gram-negative rods. We will have a final sensitivity by tomorrow. I am going to start him on oral Bactrim until we get that report. Otherwise, no changes. PAIGE/DIAN /[id number]
[2021-04-14] MEDS: LORazepam 0.5 MG Tab PO PRN (15:32)
[2021-04-14] MEDS: LORazepam 2 MG/ML Syringe IVPUSH PRN ×2 (17:02→21:42)
[2021-04-14] MEDS: Phenazopyridine 95 MG Tab PO PRN (17:02)
[2021-04-14] MEDS: Simvastatin 10 MG Tab PO SCH (19:32)
[2021-04-14] MEDS: Temazepam 15 MG Cap PO PRN (23:20)
[2021-04-15 07:25] LABS: CHLORIDE,CL 105 mEq/L (98-106); SODIUM,NA 140 mEq/L (136-145)
[2021-04-15] MEDS: amLODIPine 10 MG Tab PO SCH (07:57)
[2021-04-15] MEDS: Sulfamethoxazole/Trimethoprim 800-160 MG Tab PO SCH ×2 (07:57→20:17)
[2021-04-15] MEDS: Clopidogrel 75 MG Tab PO SCH (07:57)
[2021-04-15] MEDS: Tamsulosin 0.4 MG Cap.ER PO SCH ×2 (07:57→20:17)
[2021-04-15] MEDS: Enoxaparin 40 MG/0.4 ML Syringe SUBCUT SCH (07:58)
[2021-04-15] MEDS: VILANTEROL INH SCH (07:58)
[2021-04-15] MEDS: [UNRECOGNIZED DRUG - OTHER] INH SCH (07:58)
[2021-04-15] MEDS: UMECLIDINIUM INH SCH (07:58)
[2021-04-15] MEDS: Roflumilast [Daliresp] 500 MCG Tablet PO SCH (07:58)
[2021-04-15] MEDS: predniSONE 5 MG Tab PO SCH (07:58)
[2021-04-15] MEDS: Pantoprazole 40 MG Vial IV SCH ×2 (07:58→20:17)
--- NOTE | 2021-04-15 09:03 | PN ---
DATE: 04/15/2021 S: Mr. Horowitz had a good day and a wonderful night. He actually slept well. He has not spiked any temperatures. His vital signs have been stable. He denies any complaints of pain. He still has urinary frequency, but no more burning or discomfort in the perineal area. O: GENERAL: He is in his usual state. HEENT: Grossly benign. NECK: Veins are flat. LUNGS: Diminished, but clear. CARDIAC: Tones are regular. ABDOMEN: Soft. EXTREMITIES: No peripheral edema. ASSESSMENT: 1. URINARY TRACT INFECTION/PROSTATITIS. 2. CHRONIC OBSTRUCTIVE PULMONARY DISEASE. 3. HYPERTENSION. 4. DEPRESSION AND ANXIETY. 5. CHRONIC ALCOHOL USE. P: The patient is doing quite well, get him up and moving today. He should be ready to go home by tomorrow. We will have sensitivities later this afternoon. He is on both IV Rocephin and oral Bactrim at this time. All in all doing well and has not had any withdrawal symptoms from alcohol. PAIGE/DIAN /[id number]
[2021-04-15] MEDS ORDERED: Polyethylene Glycol 3350 Powder 17 GM Packet PO ONE (10:50)
[2021-04-15] MEDS: cefTRIAXone 1 GM Vial IVPUSH SCH (13:23)
[2021-04-15] MEDS ORDERED: Bisacodyl 10 MG Supp RECTAL PRN (18:30)
[2021-04-15] MEDS: Simvastatin 10 MG Tab PO SCH (20:17)
[2021-04-15] MEDS: LORazepam 2 MG/ML Syringe IVPUSH PRN ×2 (20:59→23:25)
[2021-04-15] MEDS: Temazepam 15 MG Cap PO PRN (21:00)
[2021-04-16 07:15] LABS: CHLORIDE,CL 102 mEq/L (98-106); SODIUM,NA 139 mEq/L (136-145)
[2021-04-16] MEDS: Enoxaparin 40 MG/0.4 ML Syringe SUBCUT SCH (08:24)
[2021-04-16] MEDS: Pantoprazole 40 MG Vial IV SCH (08:24)
[2021-04-16] MEDS: Roflumilast [Daliresp] 500 MCG Tablet PO SCH (08:25)
[2021-04-16] MEDS: Tamsulosin 0.4 MG Cap.ER PO SCH (08:25)
[2021-04-16] MEDS: amLODIPine 10 MG Tab PO SCH (08:26)
[2021-04-16] MEDS: Clopidogrel 75 MG Tab PO SCH (08:26)
[2021-04-16] MEDS: predniSONE 5 MG Tab PO SCH (08:26)
[2021-04-16] MEDS: Sulfamethoxazole/Trimethoprim 800-160 MG Tab PO SCH (08:26)
[2021-04-16 08:33] VITALS: BP 124/67
[2021-04-16] MEDS: [UNRECOGNIZED DRUG - OTHER] INH SCH (08:33)
[2021-04-16] MEDS: VILANTEROL INH SCH (08:33)
[2021-04-16] MEDS: UMECLIDINIUM INH SCH (08:33)
[2021-04-16 08:34] VITALS: PULSE 86
[2021-04-16] MEDS ORDERED: Potassium Chloride 10 MEQ Tab.ER PO ONE (11:00)
--- NOTE | 2021-04-16 11:31 | PN ---
DATE: 04/16/2021 S: Henrry had a pretty good night. He has not spiked any temps. His urine culture came back showing E. coli sensitive to his Bactrim and Rocephin. For the most part, he has gotten along quite well. He is very anxious about going home just because he has been having some issues with voiding and stooling since here, but he did have a large bowel movement this morning. O: GENERAL: Shows him to be pleasant and cooperative. NECK: Supple. Veins are flat. LUNGS: Lung sounds appear to be clear throughout. CARDIAC: Tones are regular. ABDOMEN: Soft and nontender. He has good bowel sounds throughout. He has no flank pain to palpation and no peripheral edema is seen. LABORATORY DATA: Lab work is reviewed. His white count is down to 7. CRP is down from a high of 21 to 5.6 now, and his renal functions are stable. He is a little hypokalemic at 3.3. ASSESSMENT: 1. PROSTATITIS SECONDARY TO E COLI. 2. CHRONIC OBSTRUCTIVE PULMONARY DISEASE. 3. CHRONIC ALCOHOL ABUSE. 4. HYPERTENSION. 5. HYPOKALEMIA. P: We will get a magnesium level today. He is on no diuretics and I suspect this is related to his looser stool, maybe over the last day or two. Nevertheless, we will give him oral potassium today. I think he is ready for discharge and we will come see him later this afternoon and if he feels like he is doing fine and feels comfortable going home as he does live alone, we will discharge him later today. PAIGE/DIAN /[id number]
[2021-04-16] MEDS: cefTRIAXone 1 GM Vial IVPUSH SCH (12:08)
--- NOTE | 2021-04-16 20:29 | DISCH ---
ADMISSION DIAGNOSES: 1. Urinary tract Infection. 2. Anxiety. 3. Chronic obstructive pulmonary disease. 4. Hypertension. DISCHARGE DIAGNOSIS: 1. PROSTATITIS SECONDARY TO ESCHERICHIA COLI. 2. HYPERTENSION. 3. DEPRESSION AND ANXIETY. 4. CHRONIC OBSTRUCTIVE PULMONARY DISEASE. 5. CHRONIC ALCOHOL ABUSE. 6. MILD HYPOKALEMIA. HISTORY: The patient is a well known 70-year-old [place] who presented for weakness, fevers, and general decline, who was found to have a UTI. Daysi Son admitted him for IV antibiotics. HOSPITAL COURSE: The patient was admitted and started on Rocephin. At the time of his admission, he did have a few low-grade temps. His white blood cell count was 14,900 with a CRP of 10. That rodriguez to a max of 21.6. After 24 hours, the patient had no further fevers, and urine culture did grow out E coli sensitive to sulfa and Rocephin. Clinically, the patient did well while he was here. He really had no significant difficulties and was voiding well on his own, had not run a temp for over 2 days, and was felt stable for discharge. He did have a slight drop in his potassium on the morning of discharge, we did give him 1 oral potassium pill, and we will monitor this as an outpatient. COMPLICATIONS: During his stay were none. CONSULTATIONS: None. DISPOSITION: Discharged home. HARRIET /[id number]
== END 2021-04-16 13:45 | disposition home or self-care (01) | DRG 728 ==
LOC: CC.ED 08:20 → CC.MS 09:41 → UNDOADMIN 09:41 → CC.MS 10:52
PROVIDERS: ADMIT Physician Assistant Medical; ATTEND Family Medicine
DX: N39.0 Urinary tract infection, site not specified (principal); N41.0 Acute prostatitis; B96.20 Unspecified Escherichia coli [E. coli] as the cause of diseases classified elsewhere; I10 Essential (primary) hypertension; F32.9 Major depressive disorder, single episode, unspecified; F41.9 Anxiety disorder, unspecified; E87.6 Hypokalemia; N40.1 Benign prostatic hyperplasia with lower urinary tract symptoms; F10.10 Alcohol abuse, uncomplicated; E78.00 Pure hypercholesterolemia, unspecified; I73.9 Peripheral vascular disease, unspecified; E78.5 Hyperlipidemia, unspecified; R31.9 Hematuria, unspecified; E55.9 Vitamin D deficiency, unspecified; N40.0 Benign prostatic hyperplasia without lower urinary tract symptoms; J43.9 Emphysema, unspecified; Z87.891 Personal history of nicotine dependence; Z79.899 Other long term (current) drug therapy; Z79.52 Long term (current) use of systemic steroids; Z98.49 Cataract extraction status, unspecified eye; Z86.73 Personal history of transient ischemic attack (TIA), and cerebral infarction without residual deficits; Z90.49 Acquired absence of other specified parts of digestive tract; Z79.02 Long term (current) use of antithrombotics/antiplatelets
CPT/HCPCS: 36415; 71045; 80053; 81001; 82550; 83605; 83615; 84484; 85025; 86140; 87086; 87088; 87186; 93005; 99285; A9270; J7030; 80048; 83735; 93010; 94640; C9113; J0696; J1650; J2060; J7512

== ENCOUNTER 2021-12-28 15:09 | Emergency (ER) | payer MEDICARE, BC ==
[2021-12-28] MEDS: Albuterol/Ipratropium 3.0-0.5 MG/3 ML Neb Soln NEB ONE (15:37)
[2021-12-28 15:42] VITALS: BP 139/70; PULSE 93
[2021-12-28 15:49] LABS: CHLORIDE,CL 100 mEq/L (98-106); SODIUM,NA 136 mEq/L (136-145)
== END 2021-12-28 16:50 | disposition home or self-care (01) ==
LOC: CC.ED 15:09
DX: J44.1 Chronic obstructive pulmonary disease with (acute) exacerbation (principal); E78.00 Pure hypercholesterolemia, unspecified; I10 Essential (primary) hypertension; N40.0 Benign prostatic hyperplasia without lower urinary tract symptoms; Z86.73 Personal history of transient ischemic attack (TIA), and cerebral infarction without residual deficits; Z79.02 Long term (current) use of antithrombotics/antiplatelets; Z79.899 Other long term (current) drug therapy; Z20.822 Contact with and (suspected) exposure to COVID-19
CPT/HCPCS: 36415; 71046; 80053; 85025; 86140; 87804; 94640; 99284; 99285-25; J7620-GY; U0002

== ENCOUNTER 2022-03-18 15:49 | Emergency (ER) | payer MEDICARE, BC ==
[2022-03-18 15:59] VITALS: BP 157/79; PULSE 104
[2022-03-18] MEDS ORDERED: Albuterol/Ipratropium 3.0-0.5 MG/3 ML Neb Soln NEB ONE (16:07)
[2022-03-18 16:37] LABS: CHLORIDE,CL 102 mEq/L (98-106); SODIUM,NA 138 mEq/L (136-145)
[2022-03-18 16:38] LABS: ESTIMATED GFR 71 mL/min (>=60)
[2022-03-18] MEDS ORDERED: predniSONE 20 MG Tab PO STA (16:55)
== END 2022-03-18 17:17 | disposition home or self-care (01) ==
LOC: CC.ED 15:49
DX: J44.1 Chronic obstructive pulmonary disease with (acute) exacerbation (principal); R53.1 Weakness; E78.00 Pure hypercholesterolemia, unspecified; I10 Essential (primary) hypertension; Z86.73 Personal history of transient ischemic attack (TIA), and cerebral infarction without residual deficits; Z20.822 Contact with and (suspected) exposure to COVID-19
CPT/HCPCS: 36415; 71046; 80053; 81001; 84484; 85025; 86140; 93005; 94640; 99284; 99285-25; J7512; J7620-GY; U0002

== ENCOUNTER 2022-04-15 12:46 | Emergency (ER) | payer MEDICARE, BC ==
[2022-04-15] MEDS ORDERED: Morphine 2 MG/ML SYRINGE SUBCUT STA (13:19)
[2022-04-15] MEDS ORDERED: Cyclobenzaprine 10 MG Tab PO ONE (13:21)
[2022-04-15 13:57] VITALS: BP 141/73; PULSE 80
== END 2022-04-15 14:05 | disposition home or self-care (01) ==
LOC: CC.ED 12:46 → SUPCPDRO 12:46 → CC.ED 14:05
DX: M54.42 Lumbago with sciatica, left side (principal); J44.9 Chronic obstructive pulmonary disease, unspecified; E78.00 Pure hypercholesterolemia, unspecified; I10 Essential (primary) hypertension; Z79.899 Other long term (current) drug therapy; Z86.73 Personal history of transient ischemic attack (TIA), and cerebral infarction without residual deficits; Z90.49 Acquired absence of other specified parts of digestive tract
CPT/HCPCS: 96372; 99283; 99284; A9270-GY; J2270

== ENCOUNTER → 2022-07-16 | Day surgery (SDC) | payer MEDICARE, BC ==
[2022-07-16] MEDS: Lactated Ringers 1,000 ML IV SCH (10:09)
[2022-07-16 12:31] VITALS: BP 138/68; PULSE 92
== END ==
LOC: CC.SDS 09:20
PROVIDERS: ATTEND Family Medicine
DX: D12.7 Benign neoplasm of rectosigmoid junction (principal); D12.0 Benign neoplasm of cecum; D12.4 Benign neoplasm of descending colon; D12.3 Benign neoplasm of transverse colon; D12.5 Benign neoplasm of sigmoid colon; K29.50 Unspecified chronic gastritis without bleeding; D50.9 Iron deficiency anemia, unspecified; J44.9 Chronic obstructive pulmonary disease, unspecified; F41.9 Anxiety disorder, unspecified; Z79.899 Other long term (current) drug therapy; E78.5 Hyperlipidemia, unspecified
CPT/HCPCS: 87081; 88305; 88342; J7120

== ENCOUNTER 2023-02-25 15:35 | Emergency (ER) | payer MEDICARE, BC ==
[2023-02-25 16:06] LABS: BASOPHILS ABSOLUTE AUTO 0.03 10^3/uL (0.00-0.50); BASOPHILS PERCENT AUTO 0.3 % (0-1); EOSINOPHILS ABSOLUTE AUTO 0.03 10^3/uL (0.00-1.50); EOSINOPHILS PERCENT AUTO 0.3 % (0-6); HEMATOCRIT 44.7 % (42.0-52.0); HEMOGLOBIN 14.7 g/dL (14.0-18.0); IMMATURE GRAN ABSOLUTE AUTO 0.02 10^3/uL (0.00-0.49); IMMATURE GRAN PERCENT AUTO 0.2 % (0.0-4.9); LYMPHOCYTES ABSOLUTE AUTO 0.91 10^3/uL (0.60-5.00); LYMPHOCYTES PERCENT AUTO 8.3 % (24-44); MEAN CORPUSCULAR HEMOGLOBIN 28.1 pg (27.0-32.0); MEAN CORPUSCULAR HGB CONC 32.9 g/dL (32.0-36.0); MEAN CORPUSCULAR VOLUME 85.3 fL (83.0-97.0); MONOCYTES ABSOLUTE AUTO 0.71 10^3/uL (0.00-1.50); MONOCYTES PERCENT AUTO 6.5 % (0-10); NEUTROPHILS ABSOLUTE AUTO 9.21 x10^3/uL (1.80-8.00); NEUTROPHILS PERCENT AUTO 84.4 % (41-71); PLATELET COUNT,PLT 318 10^3/uL (150-400); RED BLOOD CELL COUNT 5.24 x10^6/uL (4.50-6.00); WHITE BLOOD CELL COUNT,WBC 10.9 10^3/uL (4.0-11.0)
[2023-02-25 16:22] LABS: ALANINE AMINOTRANSFERASE,ALT 27 U/L (12-78); ALBUMIN 3.7 g/dL (3.4-5.0); ALKALINE PHOSPHATASE 65 U/L (46-116); ASPARTATE AMNIOTRANSFERASE,AST 15 U/L (15-37); BILIRUBIN TOTAL 0.3 mg/dL (0.0-1.0); BLOOD UREA NITROGEN,BUN 14 mg/dL (7-18); CALCIUM 8.5 mg/dL (8.4-10.1); CARBON DIOXIDE,CO2 31 mmol/L (21-32); CHLORIDE,CL 99 mEq/L (98-106); CREATININE 1.1 mg/dL (0.7-1.3); GLUCOSE RANDOM 112 mg/dL (75-99); POTASSIUM,K 4.4 mEq/L (3.5-5.0); PROTEIN TOTAL,TP 7.4 g/dL (6.4-8.2); SODIUM,NA 137 mEq/L (136-145)
[2023-02-25 16:23] LABS: C-REACTIVE PROTEIN < 0.2 mg/dL (0.2-0.8); ESTIMATED GFR 70 mL/min (>=60)
== END 2023-02-25 17:15 | disposition home or self-care (01) ==
LOC: CC.ED 15:35
DX: H53.9 Unspecified visual disturbance (principal); R06.02 Shortness of breath; I10 Essential (primary) hypertension; E78.00 Pure hypercholesterolemia, unspecified; J44.9 Chronic obstructive pulmonary disease, unspecified; Z86.73 Personal history of transient ischemic attack (TIA), and cerebral infarction without residual deficits; Z88.1 Allergy status to other antibiotic agents; Z79.02 Long term (current) use of antithrombotics/antiplatelets; Z79.899 Other long term (current) drug therapy; Z87.891 Personal history of nicotine dependence
CPT/HCPCS: 36415; 70450; 71046; 80053; 84484; 85025; 85730; 86140; 93005; 93010; 99284; 99285

== ENCOUNTER 2023-08-01 15:18 | Inpatient (IN) | payer MEDICARE, BC ==
[2023-08-01 15:36] LABS: BASOPHILS ABSOLUTE AUTO 0.05 10^3/uL (0.00-0.50); BASOPHILS PERCENT AUTO 0.4 % (0-1); EOSINOPHILS ABSOLUTE AUTO 0.11 10^3/uL (0.00-1.50); EOSINOPHILS PERCENT AUTO 0.9 % (0-6); HEMATOCRIT 45.7 % (42.0-52.0); HEMOGLOBIN 15.2 g/dL (14.0-18.0); IMMATURE GRAN ABSOLUTE AUTO 0.02 10^3/uL (0.00-0.49); IMMATURE GRAN PERCENT AUTO 0.2 % (0.0-4.9); LYMPHOCYTES ABSOLUTE AUTO 0.41 10^3/uL (0.60-5.00); LYMPHOCYTES PERCENT AUTO 3.2 % (24-44); MEAN CORPUSCULAR HEMOGLOBIN 29.9 pg (27.0-32.0); MEAN CORPUSCULAR HGB CONC 33.3 g/dL (32.0-36.0); MONOCYTES ABSOLUTE AUTO 0.94 10^3/uL (0.00-1.50); MONOCYTES PERCENT AUTO 7.4 % (0-10); NEUTROPHILS PERCENT AUTO 87.9 % (41-71); PLATELET COUNT,PLT 322 10^3/uL (150-400); RED BLOOD CELL COUNT 5.08 x10^6/uL (4.50-6.00); WHITE BLOOD CELL COUNT,WBC 12.7 10^3/uL (4.0-11.0)
[2023-08-01 15:42] LABS: APPEARANCE,URINE CLEAR (CLEAR); BILIRUBIN,URINE NEGATIVE (NEGATIVE); COLOR,URINE YELLOW (YELLOW); GLUCOSE,URINE NEGATIVE (NEGATIVE); KETONES,URINE NEGATIVE (NEGATIVE); LEUKOCYTE ESTERASE,URINE NEGATIVE (NEGATIVE); NITRITE,URINE NEGATIVE (NEGATIVE); OCCULT BLOOD,URINE NEGATIVE (NEGATIVE); PROTEIN,URINE TRACE mg/dL (NEGATIVE); UROBILINOGEN,URINE 0.2 EU/dL (0.2-1.0)
[2023-08-01 15:48] LABS: BACTERIA,URINE OCCASIONAL /HPF (NOT SEEN); RBC,URINE 0-5 /HPF (0-5); SQUAMOUS EPITHELIAL CELLS,UR FEW /HPF (NOT SEEN); WBC,URINE 0-5 /HPF (0-5)
[2023-08-01 15:49] LABS: MUCUS,URINE MANY /HPF (NOT SEEN)
[2023-08-01 15:56] LABS: ALANINE AMINOTRANSFERASE,ALT 46 U/L (12-78); ALBUMIN 3.4 g/dL (3.4-5.0); ALKALINE PHOSPHATASE 60 U/L (46-116); ASPARTATE AMNIOTRANSFERASE,AST 33 U/L (15-37); BILIRUBIN TOTAL 0.4 mg/dL (0.0-1.0); BLOOD UREA NITROGEN,BUN 12 mg/dL (7-18); C-REACTIVE PROTEIN 3.31 mg/dL (<=0.30); CALCIUM 9.4 mg/dL (8.4-10.1); CARBON DIOXIDE,CO2 33 mmol/L (21-32); CHLORIDE,CL 96 mEq/L (98-106); CREATININE 1.1 mg/dL (0.7-1.3); ESTIMATED GFR 70 mL/min (>=60); GLUCOSE RANDOM 107 mg/dL (75-99); POTASSIUM,K 4.1 mEq/L (3.5-5.0); PROTEIN TOTAL,TP 7.4 g/dL (6.4-8.2); SODIUM,NA 133 mEq/L (136-145)
[2023-08-01] MEDS ORDERED: Albuterol 0.083% 2.5 MG/3 ML Neb Soln NEB PRN (16:58)
[2023-08-01] MEDS ORDERED: Albuterol/Ipratropium 3.0-0.5 MG/3 ML Neb Soln NEB ONE (16:58)
[2023-08-01] MEDS ORDERED: Dexamethasone 10 MG/ML SDV IVPUSH ONE (16:58)
[2023-08-01] MEDS ORDERED: Ibuprofen 200 MG Tab PO PRN (17:09)
[2023-08-01] MEDS ORDERED: Magnesium Sulfate/Water 2 GM in Premix Bag 1 BAG IV ONE (19:21)
[2023-08-01] MEDS ORDERED: Albuterol/Ipratropium 3.0-0.5 MG/3 ML Neb Soln NEB SCH (20:00)
[2023-08-01] MEDS ORDERED: traZODone 50 MG Tab PO SCH (20:00)
[2023-08-01] MEDS: Azithromycin 250 MG Tab PO SCH (20:18)
[2023-08-01] MEDS: Tamsulosin 0.4 MG Cap.ER PO SCH (20:31)
[2023-08-01] MEDS: guaiFENesin 200 MG Tab PO SCH ×2 (20:31→23:54)
[2023-08-01] MEDS: Temazepam 15 MG Cap PO SCH (20:37)
[2023-08-01] MEDS: Simvastatin 10 MG Tab PO SCH (20:54)
[2023-08-02] MEDS: Albuterol 0.083% 2.5 MG/3 ML Neb Soln NEB SCH ×5 (07:57→20:01)
[2023-08-02] MEDS: Metoprolol Succinate 25 MG Tab.ER PO SCH (07:58)
[2023-08-02] MEDS: Cyanocobalamin (Vitamin B12) 1,000 MCG Tab PO SCH (07:58)
[2023-08-02] MEDS: Tamsulosin 0.4 MG Cap.ER PO SCH ×2 (07:58→20:02)
[2023-08-02] MEDS: Pantoprazole 40 MG Tab.CR PO SCH (07:58)
[2023-08-02] MEDS: Clopidogrel 75 MG Tab PO SCH (07:59)
[2023-08-02] MEDS: amLODIPine 10 MG Tab PO SCH (07:59)
[2023-08-02] MEDS: guaiFENesin 200 MG Tab PO SCH ×3 (07:59→20:02)
[2023-08-02] MEDS ORDERED: Dexamethasone 10 MG/ML SDV IVPUSH ONE (08:00)
[2023-08-02] MEDS ORDERED: UBIDECARENONE 30 MG PO SCH (08:00)
[2023-08-02] MEDS: Cholecalciferol (Vitamin D3) 25 MCG Tab PO SCH (08:03)
[2023-08-02] MEDS ORDERED: Non-Formulary Medication 1 Each (Fluticasone/Umeclidin/Vilanter [Trelegy Ellipta 100-62.5- INH SCH (10:45)
[2023-08-02] MEDS: LORazepam 0.5 MG Tab PO PRN ×2 (11:57→18:27)
[2023-08-02] MEDS ORDERED: Albuterol/Ipratropium 3.0-0.5 MG/3 ML Neb Soln NEB ONE (12:53)
[2023-08-02] MEDS: Enoxaparin 40 MG/0.4 ML Syringe SUBCUT SCH (20:01)
[2023-08-02] MEDS: Azithromycin 250 MG Tab PO SCH (20:02)
[2023-08-02] MEDS: Temazepam 15 MG Cap PO SCH (20:02)
[2023-08-02] MEDS: Simvastatin 10 MG Tab PO SCH (20:02)
[2023-08-03] MEDS: Enoxaparin 40 MG/0.4 ML Syringe SUBCUT SCH ×2 (00:51→19:33)
[2023-08-03] MEDS: LORazepam 0.5 MG Tab PO PRN ×3 (02:50→19:34)
[2023-08-03] MEDS: Cholecalciferol (Vitamin D3) 25 MCG Tab PO SCH (07:21)
[2023-08-03] MEDS: Albuterol 0.083% 2.5 MG/3 ML Neb Soln NEB SCH ×4 (07:21→19:33)
[2023-08-03] MEDS: Cyanocobalamin (Vitamin B12) 1,000 MCG Tab PO SCH (07:22)
[2023-08-03] MEDS: Tamsulosin 0.4 MG Cap.ER PO SCH ×2 (07:22→19:33)
[2023-08-03] MEDS: Clopidogrel 75 MG Tab PO SCH (07:23)
[2023-08-03] MEDS: guaiFENesin 200 MG Tab PO SCH ×3 (07:23→19:33)
[2023-08-03] MEDS: Pantoprazole 40 MG Tab.CR PO SCH (07:23)
[2023-08-03] MEDS: amLODIPine 10 MG Tab PO SCH (07:27)
[2023-08-03] MEDS: Metoprolol Succinate 25 MG Tab.ER PO SCH (07:27)
[2023-08-03] MEDS ORDERED: Dexamethasone 10 MG/ML SDV IVPUSH ONE (10:47)
[2023-08-03] MEDS: Simvastatin 10 MG Tab PO SCH (19:32)
[2023-08-03] MEDS: Temazepam 15 MG Cap PO SCH (19:33)
[2023-08-03] MEDS: Azithromycin 250 MG Tab PO SCH (19:33)
[2023-08-04] MEDS ORDERED: predniSONE 20 MG Tab PO SCH (08:00)
[2023-08-04] MEDS: Cholecalciferol (Vitamin D3) 25 MCG Tab PO SCH (08:00)
[2023-08-04] MEDS: Tamsulosin 0.4 MG Cap.ER PO SCH ×2 (08:02→19:18)
[2023-08-04] MEDS: Metoprolol Succinate 25 MG Tab.ER PO SCH (08:02)
[2023-08-04] MEDS: Cyanocobalamin (Vitamin B12) 1,000 MCG Tab PO SCH (08:03)
[2023-08-04] MEDS: guaiFENesin 200 MG Tab PO SCH ×3 (08:03→19:18)
[2023-08-04] MEDS: Pantoprazole 40 MG Tab.CR PO SCH (08:04)
[2023-08-04] MEDS: Clopidogrel 75 MG Tab PO SCH (08:04)
[2023-08-04] MEDS: amLODIPine 10 MG Tab PO SCH (08:05)
[2023-08-04] MEDS: Albuterol 0.083% 2.5 MG/3 ML Neb Soln NEB SCH ×3 (08:05→17:05)
[2023-08-04] MEDS: LORazepam 0.5 MG Tab PO PRN ×2 (09:24→18:16)
[2023-08-04] MEDS ORDERED: Magnesium Sulfate/Water 2 GM in Premix Bag 1 BAG IV ONE (19:10)
[2023-08-04] MEDS ORDERED: Dexamethasone 10 MG/ML SDV IVPUSH ONE (19:10)
[2023-08-04] MEDS: Enoxaparin 40 MG/0.4 ML Syringe SUBCUT SCH (19:17)
[2023-08-04] MEDS: Azithromycin 250 MG Tab PO SCH (19:17)
[2023-08-04] MEDS ORDERED: Iopamidol 755 Mg/ML 100 ML Bottle IVPUSH ONE (19:18)
[2023-08-04] MEDS: Temazepam 15 MG Cap PO SCH (19:18)
[2023-08-04] MEDS: Simvastatin 10 MG Tab PO SCH (19:18)
[2023-08-04 19:26] LABS: O2 DELIVERY DEVICE NASAL CANNULA
[2023-08-04 19:28] LABS: BASOPHILS ABSOLUTE AUTO 0.01 10^3/uL (0.00-0.50); BASOPHILS PERCENT AUTO 0.1 % (0-1); HEMATOCRIT 43.4 % (42.0-52.0); HEMOGLOBIN 14.6 g/dL (14.0-18.0); IMMATURE GRAN ABSOLUTE AUTO 0.05 10^3/uL (0.00-0.49); IMMATURE GRAN PERCENT AUTO 0.5 % (0.0-4.9); LYMPHOCYTES ABSOLUTE AUTO 0.56 10^3/uL (0.60-5.00); LYMPHOCYTES PERCENT AUTO 5.1 % (24-44); MEAN CORPUSCULAR HEMOGLOBIN 29.6 pg (27.0-32.0); MEAN CORPUSCULAR HGB CONC 33.6 g/dL (32.0-36.0); MEAN CORPUSCULAR VOLUME 87.9 fL (83.0-97.0); MONOCYTES ABSOLUTE AUTO 0.57 10^3/uL (0.00-1.50); MONOCYTES PERCENT AUTO 5.1 % (0-10); NEUTROPHILS ABSOLUTE AUTO 9.89 x10^3/uL (1.80-8.00); NEUTROPHILS PERCENT AUTO 89.2 % (41-71); PLATELET COUNT,PLT 378 10^3/uL (150-400); RED BLOOD CELL COUNT 4.94 x10^6/uL (4.50-6.00); WHITE BLOOD CELL COUNT,WBC 11.1 10^3/uL (4.0-11.0)
[2023-08-04 19:31] LABS: O2 SATURATION ARTERIAL 99 % (95-98); PCO2 ARTERIAL 39 mm/Hg0 (35-45); PH,ARTERIAL 7.42 (7.35-7.45); PO2 ARTERIAL 144 mm/Hg (80-100)
[2023-08-04 19:32] LABS: BASE EXCESS ARTERIAL 1.3 (-2.0-3.0); BICARBONATE,ARTERIAL 25.7 mm/L (22.0-26.0)
[2023-08-04] MEDS: Albuterol/Ipratropium 3.0-0.5 MG/3 ML Neb Soln NEB SCH (19:42)
[2023-08-04 19:44] LABS: ALBUMIN 3.3 g/dL (3.4-5.0); BILIRUBIN TOTAL 0.2 mg/dL (0.0-1.0); CALCIUM 8.7 mg/dL (8.4-10.1); EST CRCL DRUG DOSING (CG) 62.7 mL/min; MAGNESIUM 1.9 mg/dL (1.8-2.4); POTASSIUM,K 3.6 mEq/L (3.5-5.0); PROTEIN TOTAL,TP 7.1 g/dL (6.4-8.2)
[2023-08-04 19:47] LABS: LACTIC ACID 2.4 mmol/L (0.4-2.0)
[2023-08-04] MEDS ORDERED: Sodium Chloride 0.9% 1,000 ML IV ONE (20:09)
[2023-08-04] MEDS ORDERED: Sodium Chloride 0.9% 1,000 ML IV SCH (20:15)
[2023-08-05] MEDS: LORazepam 0.5 MG Tab PO PRN ×3 (00:45→12:55)
[2023-08-05] MEDS: Albuterol/Ipratropium 3.0-0.5 MG/3 ML Neb Soln NEB SCH ×2 (07:23→12:06)
[2023-08-05] MEDS: guaiFENesin 200 MG Tab PO SCH ×2 (07:23→13:25)
[2023-08-05] MEDS: Pantoprazole 40 MG Tab.CR PO SCH (07:23)
[2023-08-05] MEDS: Cholecalciferol (Vitamin D3) 25 MCG Tab PO SCH (07:23)
[2023-08-05] MEDS: Cyanocobalamin (Vitamin B12) 1,000 MCG Tab PO SCH (07:23)
[2023-08-05] MEDS: Clopidogrel 75 MG Tab PO SCH (07:24)
[2023-08-05] MEDS: Tamsulosin 0.4 MG Cap.ER PO SCH (07:25)
[2023-08-05] MEDS: amLODIPine 10 MG Tab PO SCH (07:34)
[2023-08-05] MEDS: Metoprolol Succinate 25 MG Tab.ER PO SCH (07:35)
[2023-08-05 07:36] VITALS: BP 144/73; PULSE 94
[2023-08-05] MEDS ORDERED: predniSONE 20 MG Tab PO STA (07:55)
== END 2023-08-05 14:30 | disposition home or self-care (01) | DRG 192 ==
LOC: CC.MS 15:18 → CC.FCMC 15:18 → CC.MS 16:48 → UNDOADMIN 16:48 → CC.MS 17:02
PROVIDERS: ADMIT Family Medicine; ATTEND Family Medicine
DX: J44.1 Chronic obstructive pulmonary disease with (acute) exacerbation (principal); F41.9 Anxiety disorder, unspecified; N40.0 Benign prostatic hyperplasia without lower urinary tract symptoms; F32.A Depression, unspecified; K21.9 Gastro-esophageal reflux disease without esophagitis; I10 Essential (primary) hypertension; F17.210 Nicotine dependence, cigarettes, uncomplicated; E78.00 Pure hypercholesterolemia, unspecified; G47.00 Insomnia, unspecified; J43.9 Emphysema, unspecified; Z11.52 Encounter for screening for COVID-19; Z98.890 Other specified postprocedural states; Z86.73 Personal history of transient ischemic attack (TIA), and cerebral infarction without residual deficits; Z88.1 Allergy status to other antibiotic agents; Z79.899 Other long term (current) drug therapy; Z79.02 Long term (current) use of antithrombotics/antiplatelets; Z87.81 Personal history of (healed) traumatic fracture; Z98.49 Cataract extraction status, unspecified eye; Z90.49 Acquired absence of other specified parts of digestive tract
CPT/HCPCS: 36415; 36600; 71045; 71046; 71275; 80053; 81001; 82803; 83605; 83735; 84484; 85025; 86140; 87040; 93005; 93010; 94640; A9270-GY; J1100; J1650; J3475; J7030; J7512; J7613-GY; J7620-GY; Q9967; U0002

== ENCOUNTER 2023-11-05 13:24 | Emergency (ER) | payer MEDICARE, BC ==
[2023-11-05 13:35] VITALS: BP 132/59; PULSE 113
[2023-11-05 13:53] LABS: BASOPHILS ABSOLUTE AUTO 0.03 10^3/uL (0.00-0.50); BASOPHILS PERCENT AUTO 0.2 % (0-1); EOSINOPHILS PERCENT AUTO 0.7 % (0-6); HEMATOCRIT 41.1 % (42.0-52.0); HEMOGLOBIN 13.6 g/dL (14.0-18.0); IMMATURE GRAN ABSOLUTE AUTO 0.04 10^3/uL (0.00-0.49); IMMATURE GRAN PERCENT AUTO 0.3 % (0.0-4.9); LYMPHOCYTES ABSOLUTE AUTO 0.69 10^3/uL (0.60-5.00); LYMPHOCYTES PERCENT AUTO 4.8 % (24-44); MEAN CORPUSCULAR HEMOGLOBIN 30.9 pg (27.0-32.0); MEAN CORPUSCULAR HGB CONC 33.1 g/dL (32.0-36.0); MEAN CORPUSCULAR VOLUME 93.4 fL (83.0-97.0); MONOCYTES ABSOLUTE AUTO 1.41 10^3/uL (0.00-1.50); MONOCYTES PERCENT AUTO 9.7 % (0-10); NEUTROPHILS ABSOLUTE AUTO 12.23 x10^3/uL (1.80-8.00); NEUTROPHILS PERCENT AUTO 84.3 % (41-71); PLATELET COUNT,PLT 267 10^3/uL (150-400); WHITE BLOOD CELL COUNT,WBC 14.5 10^3/uL (4.0-11.0)
[2023-11-05 14:07] LABS: ALBUMIN 3.2 g/dL (3.4-5.0); BILIRUBIN TOTAL 0.5 mg/dL (0.0-1.0); C-REACTIVE PROTEIN 3.31 mg/dL (<=0.50); CALCIUM 8.5 mg/dL (8.4-10.1); CREATININE 1.1 mg/dL (0.7-1.3); EST CRCL DRUG DOSING (CG) 54.25 mL/min; POTASSIUM,K 4.3 mEq/L (3.5-5.0); PROTEIN TOTAL,TP 6.6 g/dL (6.4-8.2)
[2023-11-05] MEDS: methylPREDNISolone Sodium Succinate 40 MG/1 ML SDV IM ONE (14:50)
== END 2023-11-05 15:30 | disposition home or self-care (01) ==
LOC: CC.ED 13:24
DX: J44.1 Chronic obstructive pulmonary disease with (acute) exacerbation (principal); I10 Essential (primary) hypertension; E78.00 Pure hypercholesterolemia, unspecified; Z79.899 Other long term (current) drug therapy; Z88.1 Allergy status to other antibiotic agents; Z88.2 Allergy status to sulfonamides; Z88.8 Allergy status to other drugs, medicaments and biological substances
CPT/HCPCS: 36415; 71045; 80053; 85025; 86140; 87804; 87807; 96372; 99285; J2920; U0002

== ENCOUNTER 2024-07-08 23:37 | Inpatient (IN) | payer MEDICARE, BC ==
[2024-07-09] LABS: BASOPHILS ABSOLUTE AUTO 0.01 10^3/uL (0.00-0.50); EOSINOPHILS ABSOLUTE AUTO 0.02 10^3/uL (0.00-1.50); EOSINOPHILS PERCENT AUTO 0.1 % (0-6); HEMATOCRIT 44.9 % (42.0-52.0); HEMOGLOBIN 14.4 g/dL (14.0-18.0); IMMATURE GRAN ABSOLUTE AUTO 0.06 10^3/uL (0.00-0.49); IMMATURE GRAN PERCENT AUTO 0.3 % (0.0-4.9); LYMPHOCYTES ABSOLUTE AUTO 1.45 10^3/uL (0.60-5.00); LYMPHOCYTES PERCENT AUTO 6.1 % (24-44); MEAN CORPUSCULAR HEMOGLOBIN 30.1 pg (27.0-32.0); MEAN CORPUSCULAR HGB CONC 32.1 g/dL (32.0-36.0); MEAN CORPUSCULAR VOLUME 93.9 fL (83.0-97.0); MONOCYTES ABSOLUTE AUTO 1.21 10^3/uL (0.00-1.50); MONOCYTES PERCENT AUTO 5.1 % (0-10); NEUTROPHILS PERCENT AUTO 88.4 % (41-71); PLATELET COUNT,PLT 340 10^3/uL (150-400); RED BLOOD CELL COUNT 4.78 x10^6/uL (4.50-6.00)
[2024-07-09] MEDS: Sodium Chloride 0.9% 1,000 ML IV SCH ×2 (00:02→02:05)
[2024-07-09 00:04] LABS: WHITE BLOOD CELL COUNT,WBC 23.8 10^3/uL (4.0-11.0)
[2024-07-09 00:11] LABS: INR 1.02 (0.92-1.18); PROTHROMBIN TIME 10.7 SEC (9.3-11.3); PTT,PARTIAL THROMBOPLSTIN TIME 19.6 SEC (20.0-30.0)
[2024-07-09] MEDS: Diltiazem 100 MG AdvVial ONE (00:15)
[2024-07-09] MEDS: Sodium Chloride 0.9% 100 ML ONE (00:15)
[2024-07-09 00:17] LABS: ALBUMIN 3.7 g/dL (3.4-5.0); BILIRUBIN TOTAL 0.6 mg/dL (0.0-1.0); C-REACTIVE PROTEIN 1.93 mg/dL (<=0.50); CALCIUM 8.9 mg/dL (8.4-10.1); CREATININE 1.1 mg/dL (0.7-1.3); EST CRCL DRUG DOSING (CG) 54.25 mL/min; PROTEIN TOTAL,TP 7.5 g/dL (6.4-8.2)
[2024-07-09] MEDS: Acetaminophen 325 MG Tab PO ONE (00:17)
[2024-07-09 00:33] LABS: POTASSIUM,K 4.1 mEq/L (3.5-5.0)
[2024-07-09 00:43] LABS: O2 DELIVERY DEVICE NASAL CANNULA
[2024-07-09] MEDS: Magnesium Sulfate/Water Premix 2 GM in Premix Bag 1 BAG IV ONE (00:47)
[2024-07-09 00:48] LABS: BASE EXCESS ARTERIAL -0.1 (-2.0-3.0); BICARBONATE,ARTERIAL 24.9 mm/L (22.0-26.0); O2 SATURATION ARTERIAL 96 % (95-98); PCO2 ARTERIAL 41 mm/Hg0 (35-45); PH,ARTERIAL 7.39 (7.35-7.45); PO2 ARTERIAL 82 mm/Hg (80-100)
[2024-07-09] MEDS: LORazepam 2 MG/ML SDV IVPUSH ONE (01:02)
[2024-07-09] MEDS: Piperacillin/Tazobactam 4.5 GM in Sodium Chloride 0.9% 100 ML IV ONE (01:10)
[2024-07-09] MEDS: Levalbuterol HCl 1.25 MG/3 ML Neb NEB ONE (02:37)
[2024-07-09] MEDS: Levalbuterol HCl 1.25 MG/3 ML Neb ONE (02:37)
[2024-07-09] MEDS: Diltiazem 25 MG/5 ML SDV ONE (02:41)
[2024-07-09] MEDS: Diltiazem 25 MG/5 ML SDV IVPUSH ONE ×2 (02:43→04:24)
[2024-07-09] MEDS ORDERED: Ondansetron 4 MG Tab.DIS PO PRN (03:47)
[2024-07-09] MEDS ORDERED: Sodium Chloride 0.9% 1,000 ML IV SCH (03:47)
[2024-07-09] MEDS ORDERED: Ondansetron 4 MG/2 ML SDV IV PRN (03:47)
[2024-07-09] MEDS: Piperacillin/Tazobactam 4.5 GM in Sodium Chloride 0.9% 100 ML IV SCH (04:51)
[2024-07-09] MEDS: Sodium Chloride 0.9% 1,000 ML IV ONE (05:14)
[2024-07-09] MEDS: Levalbuterol HCl 1.25 MG/3 ML Neb NEB SCH (07:53)
[2024-07-09] MEDS: methylPREDNISolone Sodium Succinate 125 MG/2 ML SDV IVPUSH SCH (07:53)
[2024-07-09] MEDS: Enoxaparin 40 MG/0.4 ML Syringe SUBCUT SCH (08:05)
[2024-07-09] MEDS: LORazepam 0.5 MG Tab PO PRN (08:47)
[2024-07-09] MEDS: Diltiazem 100 MG in Sodium Chloride 0.9% 100 ML IV SCH (10:46)
[2024-07-09] MEDS: Sodium Chloride 0.9% 500 ML IV SCH (12:17)
[2024-07-09] MEDS ORDERED: Albuterol/Ipratropium 3.0-0.5 MG/3 ML Neb Soln INH PRN (14:53)
[2024-07-09] MEDS: amLODIPine 10 MG Tab PO SCH (15:26)
[2024-07-09] MEDS: Loratadine 10 MG Tab PO SCH (15:26)
[2024-07-09] MEDS: Metoprolol Succinate 25 MG Tab.ER PO SCH (15:26)
[2024-07-09] MEDS: Magnesium Oxide 400 MG Tab PO SCH (15:26)
[2024-07-09] MEDS: Tamsulosin 0.4 MG Cap.ER PO SCH (15:26)
[2024-07-09] MEDS: UBIDECARENONE 500 MG PO SCH (15:47)
[2024-07-09] MEDS: guaiFENesin 200 MG Tab PO SCH (19:13)
[2024-07-09] MEDS ORDERED: Hypromellose 0.3% Ophth Soln 15 ML Bottle EYEBOTH PRN (20:00)
[2024-07-09] MEDS: traZODone 50 MG Tab PO PRN (21:33)
[2024-07-10 07:42] LABS: BASOPHILS ABSOLUTE AUTO 0.01 10^3/uL (0.00-0.50); HEMATOCRIT 37.5 % (42.0-52.0); HEMOGLOBIN 12.2 g/dL (14.0-18.0); IMMATURE GRAN ABSOLUTE AUTO 0.06 10^3/uL (0.00-0.49); IMMATURE GRAN PERCENT AUTO 0.3 % (0.0-4.9); LYMPHOCYTES ABSOLUTE AUTO 0.51 10^3/uL (0.60-5.00); LYMPHOCYTES PERCENT AUTO 2.4 % (24-44); MEAN CORPUSCULAR HEMOGLOBIN 30.3 pg (27.0-32.0); MEAN CORPUSCULAR HGB CONC 32.5 g/dL (32.0-36.0); MEAN CORPUSCULAR VOLUME 93.3 fL (83.0-97.0); MONOCYTES ABSOLUTE AUTO 0.88 10^3/uL (0.00-1.50); MONOCYTES PERCENT AUTO 4.2 % (0-10); NEUTROPHILS ABSOLUTE AUTO 19.58 x10^3/uL (1.80-8.00); NEUTROPHILS PERCENT AUTO 93.1 % (41-71); PLATELET COUNT,PLT 294 10^3/uL (150-400); RED BLOOD CELL COUNT 4.02 x10^6/uL (4.50-6.00)
[2024-07-10] MEDS: Cholecalciferol (Vitamin D3) 5,000 UNIT Tab PO SCH (07:53)
[2024-07-10] MEDS: Clopidogrel 75 MG Tab PO SCH (07:53)
[2024-07-10] MEDS: Enoxaparin 40 MG/0.4 ML Syringe SUBCUT SCH (07:54)
[2024-07-10] MEDS ORDERED: Non-Formulary Medication 1 Each (Pravastatin Sodium 40 MG Tablet) PO SCH (08:00)
[2024-07-10 08:01] LABS: ALBUMIN 2.6 g/dL (3.4-5.0); BILIRUBIN TOTAL 0.4 mg/dL (0.0-1.0); C-REACTIVE PROTEIN 9.39 mg/dL (<=0.50); CALCIUM 8.2 mg/dL (8.4-10.1); CREATININE 0.9 mg/dL (0.7-1.3); EST CRCL DRUG DOSING (CG) 66.3 mL/min; POTASSIUM,K 3.7 mEq/L (3.5-5.0); PROTEIN TOTAL,TP 6.1 g/dL (6.4-8.2)
[2024-07-10] MEDS: TADALAFIL 5 MG PO SCH (08:02)
[2024-07-10] MEDS: Hypromellose 0.3% Ophth Soln 15 ML Bottle EYEBOTH SCH (11:36)
[2024-07-10] MEDS: Acetaminophen 325 MG Tab PO PRN (16:05)
[2024-07-10] MEDS: LORazepam 0.5 MG Tab PO SCH (19:42)
[2024-07-11 07:32] LABS: HEMATOCRIT 37.6 % (42.0-52.0); HEMOGLOBIN 12.1 g/dL (14.0-18.0); IMMATURE GRAN ABSOLUTE AUTO 0.04 10^3/uL (0.00-0.49); IMMATURE GRAN PERCENT AUTO 0.3 % (0.0-4.9); LYMPHOCYTES ABSOLUTE AUTO 0.47 10^3/uL (0.60-5.00); LYMPHOCYTES PERCENT AUTO 3.3 % (24-44); MEAN CORPUSCULAR HGB CONC 32.2 g/dL (32.0-36.0); MEAN CORPUSCULAR VOLUME 93.3 fL (83.0-97.0); MONOCYTES ABSOLUTE AUTO 0.97 10^3/uL (0.00-1.50); MONOCYTES PERCENT AUTO 6.8 % (0-10); NEUTROPHILS ABSOLUTE AUTO 12.69 x10^3/uL (1.80-8.00); NEUTROPHILS PERCENT AUTO 89.6 % (41-71); PLATELET COUNT,PLT 307 10^3/uL (150-400); RED BLOOD CELL COUNT 4.03 x10^6/uL (4.50-6.00); WHITE BLOOD CELL COUNT,WBC 14.2 10^3/uL (4.0-11.0)
[2024-07-11 07:39] LABS: ALBUMIN 2.5 g/dL (3.4-5.0); BILIRUBIN TOTAL 0.3 mg/dL (0.0-1.0); C-REACTIVE PROTEIN 4.57 mg/dL (<=0.50); CALCIUM 8.1 mg/dL (8.4-10.1); CREATININE 0.9 mg/dL (0.7-1.3); EST CRCL DRUG DOSING (CG) 66.3 mL/min; POTASSIUM,K 3.6 mEq/L (3.5-5.0); PROTEIN TOTAL,TP 5.9 g/dL (6.4-8.2)
[2024-07-11] MEDS: methylPREDNISolone Sodium Succinate 125 MG/2 ML SDV IVPUSH SCH (07:51)
[2024-07-11] MEDS: PARoxetine 20 MG Tab PO SCH (07:55)
[2024-07-12 07:33] LABS: HEMATOCRIT 36.8 % (42.0-52.0); HEMOGLOBIN 11.9 g/dL (14.0-18.0); IMMATURE GRAN ABSOLUTE AUTO 0.02 10^3/uL (0.00-0.49); IMMATURE GRAN PERCENT AUTO 0.2 % (0.0-4.9); LYMPHOCYTES ABSOLUTE AUTO 0.61 10^3/uL (0.60-5.00); LYMPHOCYTES PERCENT AUTO 5.7 % (24-44); MEAN CORPUSCULAR HEMOGLOBIN 30.5 pg (27.0-32.0); MEAN CORPUSCULAR HGB CONC 32.3 g/dL (32.0-36.0); MEAN CORPUSCULAR VOLUME 94.4 fL (83.0-97.0); MONOCYTES ABSOLUTE AUTO 0.91 10^3/uL (0.00-1.50); MONOCYTES PERCENT AUTO 8.5 % (0-10); NEUTROPHILS ABSOLUTE AUTO 9.11 x10^3/uL (1.80-8.00); NEUTROPHILS PERCENT AUTO 85.6 % (41-71); PLATELET COUNT,PLT 297 10^3/uL (150-400); WHITE BLOOD CELL COUNT,WBC 10.7 10^3/uL (4.0-11.0)
[2024-07-12 08:13] LABS: ALBUMIN 2.4 g/dL (3.4-5.0); BILIRUBIN TOTAL 0.3 mg/dL (0.0-1.0); CALCIUM 8.1 mg/dL (8.4-10.1); CREATININE 0.9 mg/dL (0.7-1.3); EST CRCL DRUG DOSING (CG) 66.3 mL/min; POTASSIUM,K 3.7 mEq/L (3.5-5.0); PROTEIN TOTAL,TP 5.6 g/dL (6.4-8.2)
[2024-07-12] MEDS: Levofloxacin 500 MG Tab PO ONE (17:31)
[2024-07-13 07:50] LABS: ALBUMIN 2.6 g/dL (3.4-5.0); BILIRUBIN TOTAL 0.3 mg/dL (0.0-1.0); C-REACTIVE PROTEIN 1.16 mg/dL (<=0.50); CALCIUM 8.1 mg/dL (8.4-10.1); CREATININE 0.9 mg/dL (0.7-1.3); EST CRCL DRUG DOSING (CG) 66.3 mL/min; POTASSIUM,K 3.6 mEq/L (3.5-5.0); PROTEIN TOTAL,TP 5.6 g/dL (6.4-8.2)
[2024-07-13 07:57] LABS: EOSINOPHILS ABSOLUTE AUTO 0.01 10^3/uL (0.00-1.50); EOSINOPHILS PERCENT AUTO 0.1 % (0-6); HEMATOCRIT 39.8 % (42.0-52.0); HEMOGLOBIN 12.6 g/dL (14.0-18.0); IMMATURE GRAN ABSOLUTE AUTO 0.07 10^3/uL (0.00-0.49); IMMATURE GRAN PERCENT AUTO 0.8 % (0.0-4.9); LYMPHOCYTES ABSOLUTE AUTO 0.78 10^3/uL (0.60-5.00); LYMPHOCYTES PERCENT AUTO 8.6 % (24-44); MEAN CORPUSCULAR HEMOGLOBIN 29.7 pg (27.0-32.0); MEAN CORPUSCULAR HGB CONC 31.7 g/dL (32.0-36.0); MEAN CORPUSCULAR VOLUME 93.9 fL (83.0-97.0); MONOCYTES ABSOLUTE AUTO 0.86 10^3/uL (0.00-1.50); MONOCYTES PERCENT AUTO 9.5 % (0-10); NEUTROPHILS ABSOLUTE AUTO 7.32 x10^3/uL (1.80-8.00); PLATELET COUNT,PLT 325 10^3/uL (150-400); RED BLOOD CELL COUNT 4.24 x10^6/uL (4.50-6.00)
[2024-07-13] MEDS: Levofloxacin 500 MG Tab PO SCH (11:40)
[2024-07-13 17:59] VITALS: BP 118/55; PULSE 81
== END 2024-07-13 16:55 | disposition home or self-care (01) | DRG 178 ==
LOC: CC.ED 23:37 → CC.MS 07-09 01:49 → UNDOADMIN 07-09 01:49 → CC.MS 07-11 10:00 → UNDOADMIN 07-11 10:00
PROVIDERS: ADMIT Physician Assistant Medical; ATTEND Nurse Practitioner Family
PROC: 4A033R1 Measurement of Arterial Saturation, Peripheral, Percutaneous Approach (ICD-10-PCS; principal; 2024-07-09)
DX: J15.1 Pneumonia due to Pseudomonas (principal); I47.10 Supraventricular tachycardia, unspecified; J44.0 Chronic obstructive pulmonary disease with (acute) lower respiratory infection; J44.1 Chronic obstructive pulmonary disease with (acute) exacerbation; J18.9 Pneumonia, unspecified organism; N40.0 Benign prostatic hyperplasia without lower urinary tract symptoms; F41.9 Anxiety disorder, unspecified; F32.A Depression, unspecified; Z66 Do not resuscitate; D72.829 Elevated white blood cell count, unspecified; Z90.49 Acquired absence of other specified parts of digestive tract; I10 Essential (primary) hypertension; E78.00 Pure hypercholesterolemia, unspecified; Z79.51 Long term (current) use of inhaled steroids; Z87.891 Personal history of nicotine dependence; Z79.899 Other long term (current) drug therapy; Z79.02 Long term (current) use of antithrombotics/antiplatelets; Z87.81 Personal history of (healed) traumatic fracture; Z86.73 Personal history of transient ischemic attack (TIA), and cerebral infarction without residual deficits; Z85.46 Personal history of malignant neoplasm of prostate; Z98.49 Cataract extraction status, unspecified eye; Z98.890 Other specified postprocedural states; Z88.1 Allergy status to other antibiotic agents; Z88.2 Allergy status to sulfonamides; Z99.81 Dependence on supplemental oxygen; Z88.8 Allergy status to other drugs, medicaments and biological substances
CPT/HCPCS: 36415; 36600; 71045; 80053; 82803; 83605; 84484; 85025; 85610; 85730; 86140; 87040; 87070; 87077; 87186; 87205; 93005; 93010; 94640; 96365; 96367; 96375; 97110-GP; 97161-GP; 99223; 99232; 99233; 99238; 99285-25; A9270-GY; J1650; J2060; J2543; J2919; J3475; J3490; J7030; J7040; J7612-GY